=== PATIENT | male | born 1955 | race Caucasian/White ===

== ENCOUNTER 2021-04-05 18:07 | Inpatient (IN) | payer MEDICARE ==
[2021-04-05] MEDS ORDERED: Acetaminophen 325 MG Suppository ONE (18:20)
[2021-04-05] MEDS ORDERED: Cefepime 1 GM VIAL ONE (18:29)
[2021-04-05] MEDS ORDERED: Vancomycin HCl 500 MG VIAL ONE (18:30)
[2021-04-05 18:46] LABS: ALT (SGPT) 28 U/L (8-55); AST (SGOT) 42 U/L (5-34); Albumin 2.6 g/dL (3.4-4.8); Alkaline Phosphatase 52 U/L (40-110); Anion Gap 19 mmol/L (10-20); BUN (Urea Nitrogen) 67 mg/dL (8.4-25.7); Bilirubin, Total 2.2 mg/dL (0.2-1.2); Calc. Creatinine Clearance 0 mL/min (70-130); Calcium 8.1 mg/dL (7.8-10.44); Carbon Dioxide 13 mmol/L (23-31); Chloride 114 mmol/L (98-107); Globulin 2.8 g/dL (2.4-3.5); Glucose 116 mg/dL (80-115); Potassium 4.3 mmol/L (3.5-5.1); Protein, Total 5.4 g/dL (5.8-8.1); Sodium 142 mmol/L (136-145)
[2021-04-05 18:56] LABS: Acetaminophen Less than 6.0 mcg/mL (10.0-30.0); Alcohol Less than 10 mg/dL (Less than 10); CK (CPK) 649 U/L (30-200); Salicylate Less than 8.0 mg/dL (15.0-30.0)
[2021-04-05 19:05] LABS: Bilirubin Neg (Negative); Blood, Urine 150 (Negative); Clarity Clear (Clear); Glucose, Urine (Dipstick) Normal (Negative); Ketone, Urine Negative (Negative); Leukocyte Negative (Negative); Nitrite Negative (Negative); Protein, Urine (Dipstick) 500 mg/dl (Neg-Trace); Urobilinogen Normal mg/dL (Less than 2)
[2021-04-05 19:13] LABS: Amphetamine Not Detected (NotDetected); Barbiturates Screen Not Detected (NotDetected); Benzodiazepine Screen Not Detected (NotDetected); Cocaine Metabolite Screen Not Detected (NotDetected); Methadone Not Detected (NotDetected); Methamphetamine Not Detected (NotDetected); Opiate Screen Not Detected (NotDetected); Oxycodone Screen Not Detected (NotDetected); Phencyclidine (PCP) Not Detected (NotDetected); THC/Cannabinoid Screen Not Detected (NotDetected); Tricyclic Screen Not Detected (NotDetected)
[2021-04-05 19:17] LABS: CKMB 5.8 ng/mL (0-6.6)
[2021-04-05 19:18] LABS: Hemoglobin 11.8 g/dL (13.5-17.5); Mean Corpuscular HGB CONC 33.4 g/dL (32.0-36.0); Mean Corpuscular Hemoglobin 30.7 pg (27.0-33.0); Mean Corpuscular Volume 91.9 fl (81.2-95.1); Mean Platelet Volume 9.5 fl (7.4-10.4); Platelet Count 111 10x3/uL (150-450); RBC Distribution Width 17.4 % (11.5-14.5); Red Blood Cell (RBC) Count 3.84 10x6/uL (4.32-5.72); White Blood Cell (WBC) Count 3.7 10x3/uL (3.5-10.5)
[2021-04-05 19:19] LABS: Bacteria/HPF None Seen HPF (None Seen); Squamous Epithelial 0-3 HPF (0-3); WBC/HPF 0-3 HPF (0-3)
[2021-04-05] MEDS ORDERED: Aspirin 300 MG Suppository ONE (19:41)
[2021-04-05] MEDS ORDERED: ADMIXTURE FEE IVPB SCH ×2 (19:45→20:00)
[2021-04-05] MEDS ORDERED: ACYCLOVIR SODIUM IVPB SCH ×2 (19:45→20:00)
[2021-04-05] MEDS ORDERED: SODIUM CHLORIDE IVPB SCH ×2 (19:45→20:00)
[2021-04-05 19:53] LABS: INR-International Normal Ratio 1.1; PTT 24.2 sec (22.0-33.0); Prothrombin Time 12.4 sec (9.5-12.1)
[2021-04-05 19:59] LABS: MDiff Complete? YES
[2021-04-05 20:14] LABS: SARS-CoV-2 NAA Rapid Test Not Detected (NotDetected)
[2021-04-05 20:31] LABS: Band 10 % (5-11); Lymphocytes 52 % (21-51); Neutrophil 28 % (42-75)
[2021-04-05 20:32] LABS: Monocytes 5 % (0-10); Nucleated RBC 1 % (0); Reactive Lymphocytes 5 % (0-10)
[2021-04-05 20:33] LABS: Anisocytosis SLIGHT = 6-15 cells (100X) (0-5/hpf); Platelet Morphology Comment Appears Decreased
[2021-04-05 20:49] LABS: Magnesium 1.9 mg/dL (1.6-2.6)
[2021-04-05] MEDS ORDERED: Hydrocortisone Sod Succ/PF 100 mg/2 ml Vial IVP SCH (21:15)
[2021-04-05] MEDS ORDERED: Lidocaine 1% (PF) 30 ML VIAL SC SCH (21:30)
[2021-04-05] MEDS: metroNIDAZOLE 500 MG in Premix Bag 1 BAG IVPB SCH (21:34)
[2021-04-05] MEDS: Sodium Chloride 0.9% 1,000 ML IV SCH (21:36)
[2021-04-05 21:43] LABS: Lactic Acid 4.6 mmol/L (0.5-2.2)
[2021-04-05 21:50] LABS: Troponin I 0.252 ng/mL (< 0.028)
[2021-04-05] MEDS: Norepinephrine 8 MG/0.9% NS 250 ML IVPB SCH (21:57)
[2021-04-05] MEDS: Heparin 5,000 UNITS/ML VIAL SC SCH (22:37)
[2021-04-05 23:02] LABS: Actual Bicarbonate (HCO3a) 13.3 mEq/L (22-28); Base Excess (BEa) -8.1 mEq/L (-2.0 to +3.0); CO2 Tension 20.2 mmHg (35.0-45.0); Calcium, Ionized (arterial) 1.04 mmol/L (1.12-1.30); Carboxyhemoglobin (COHb) 0.6 gm% (0.0-3.0); Hemoglobin (Hb) 16.1 g/dL (14.0-18.0); Potassium - ABG Lab 4.1 mmol/L (3.70-5.30); Puncture Site RRA; pH, Arterial 7.44 (7.35-7.45)
[2021-04-05] MEDS ORDERED: Lactated Ringer's 500 ML IV SCH (23:15)
[2021-04-05] MEDS ORDERED: Digoxin 0.5 MG/2 ML AMP SLOW IVP SCH (23:15)
[2021-04-06 00:16] LABS: Lactic Acid 3.8 mmol/L (0.5-2.2)
[2021-04-06 00:19] LABS: Anion Gap 15 mmol/L (10-20); BUN (Urea Nitrogen) 67 mg/dL (8.4-25.7); Calc. Creatinine Clearance 27 mL/min (70-130); Calcium 7.5 mg/dL (7.8-10.44); Carbon Dioxide 14 mmol/L (23-31); Chloride 116 mmol/L (98-107); Glucose 156 mg/dL (80-115); Potassium 4.4 mmol/L (3.5-5.1); Sodium 141 mmol/L (136-145)
[2021-04-06] MEDS: Norepinephrine 8 MG/0.9% NS 250 ML IVPB SCH ×3 (01:57→14:39)
[2021-04-06] MEDS: Hydrocortisone Sod Succ/PF 100 mg/2 ml Vial IVP SCH ×4 (03:24→21:11)
[2021-04-06] MEDS: Sodium Chloride 0.9% 1,000 ML IV SCH (03:49)
[2021-04-06 03:57] LABS: Hemoglobin 10.8 g/dL (13.5-17.5); Mean Corpuscular HGB CONC 33.9 g/dL (32.0-36.0); Mean Corpuscular Hemoglobin 30.3 pg (27.0-33.0); Mean Corpuscular Volume 89.4 fl (81.2-95.1); Mean Platelet Volume 9.5 fl (7.4-10.4); Platelet Count 82 10x3/uL (150-450); RBC Distribution Width 17.7 % (11.5-14.5); Red Blood Cell (RBC) Count 3.57 10x6/uL (4.32-5.72); White Blood Cell (WBC) Count 1.9 10x3/uL (3.5-10.5)
[2021-04-06 04:09] LABS: MDiff Complete? YES
[2021-04-06 04:11] LABS: Platelet Morphology Comment Appears Decreased; RBC Morphology Normal
[2021-04-06 04:13] LABS: ALT (SGPT) 39 U/L (8-55); AST (SGOT) 90 U/L (5-34); Albumin 2.4 g/dL (3.4-4.8); Alkaline Phosphatase 54 U/L (40-110); Anion Gap 18 mmol/L (10-20); BUN (Urea Nitrogen) 64 mg/dL (8.4-25.7); Calc. Creatinine Clearance 29 mL/min (70-130); Calcium 7.5 mg/dL (7.8-10.44); Carbon Dioxide 11 mmol/L (23-31); Chloride 118 mmol/L (98-107); Globulin 2.6 g/dL (2.4-3.5); Glucose 190 mg/dL (80-115); Potassium 4.4 mmol/L (3.5-5.1); Sodium 143 mmol/L (136-145)
[2021-04-06 04:15] LABS: Troponin I 0.205 ng/mL (< 0.028)
[2021-04-06 04:19] LABS: Band 14 % (5-11); Lymphocytes 26 % (21-51); Metamyelocyte 2 % (0-0); Monocytes 9 % (0-10); Neutrophil 44 % (42-75); Promyelocytes 5 % (0-0)
[2021-04-06] MEDS: metroNIDAZOLE 500 MG in Premix Bag 1 BAG IVPB SCH ×3 (05:25→22:36)
[2021-04-06 07:19] LABS: Actual Bicarbonate (HCO3a) 12.5 mEq/L (22-28); CO2 Tension 19.4 mmHg (35.0-45.0); Carboxyhemoglobin (COHb) 0.3 gm% (0.0-3.0); Hemoglobin (Hb) 10.8 g/dL (14.0-18.0); O2 Tension (PaO2), arterial 179.5 mmHg (> 80.0); Potassium - ABG Lab 4.5 mmol/L (3.70-5.30); Puncture Site RRA; pH, Arterial 7.43 (7.35-7.45)
[2021-04-06] MEDS ORDERED: Sodium Bicarbonate 75 MEQ in Dextrose 5 %-0.45 % NaCl 1,000 ML IV SCH (08:15)
[2021-04-06] MEDS: Pantoprazole 40 MG VIAL IVP SCH (08:47)
[2021-04-06] MEDS: Albumin 25% 25 GM/100 ML BOT IVPB SCH ×3 (08:57→20:11)
[2021-04-06 09:08] VITALS: BMI 37.7
[2021-04-06] MEDS ORDERED: Dextrose 5% in Water 1,000 ML IV PRN (10:17)
[2021-04-06] MEDS ORDERED: Dextrose 50% Abboject 50 ML SYRINGE SLOW IVP PRN (10:17)
[2021-04-06] MEDS: Heparin 5,000 UNITS/ML VIAL SC SCH ×3 (10:50→21:05)
[2021-04-06] MEDS: Sodium Bicarbonate 75 MEQ, Admixture Fee 1 EACH in Dextrose 5% in Water 500 ML IV SCH ×3 (10:51→21:58)
[2021-04-06] MEDS: HumaLOG 300 UNITS/3 ML VIAL SC PRN ×3 (12:28→21:17)
[2021-04-06 13:08] LABS: Creatinine, Urine 87.2 mg/dL (63-166)
[2021-04-06] MEDS: Vasopressin 20 UNIT, Admixture Fee 1 EACH in Sodium Chloride 0.9% 50 ML IV SCH (15:01)
[2021-04-06] MEDS ORDERED: Vancomycin 1 GM in Premix Bag 1 BAG IVPB PRN (15:36)
[2021-04-06] MEDS ORDERED: Cefepime 2 GM in Sodium Chloride 0.9% 100 ML IVPB SCH (18:00)
[2021-04-06 18:38] LABS: Vancomycin, Random 11.4 ug/mL (See Comment)
[2021-04-06 18:53] LABS: Albumin 2.9 g/dL (3.4-4.8); Anion Gap 16 mmol/L (10-20); BUN (Urea Nitrogen) 69 mg/dL (8.4-25.7); BUN/Creatinine Ratio 20.41; CK (CPK) 1741 U/L (30-200); Calc. Creatinine Clearance 36 mL/min (70-130); Calcium 7.6 mg/dL (7.8-10.44); Carbon Dioxide 17 mmol/L (23-31); Chloride 118 mmol/L (98-107); Glucose 218 mg/dL (80-115); Phosphorus 3.7 mg/dL (2.3-4.7); Potassium 3.6 mmol/L (3.5-5.1); Sodium 147 mmol/L (136-145)
[2021-04-06] MEDS ORDERED: Vancomycin HCl 750 MG in Sodium Chloride 0.9% 250 ML 250 ML IVPB SCH (20:00)
[2021-04-06 20:10] LABS: Actual Bicarbonate (HCO3a) 17.7 mEq/L (22-28); Base Excess (BEa) -4.6 mEq/L (-2.0 to +3.0); CO2 Tension 24.4 mmHg (35.0-45.0); Calcium, Ionized (arterial) 0.95 mmol/L (1.12-1.30); Carboxyhemoglobin (COHb) 0.3 gm% (0.0-3.0); O2 Tension (PaO2), arterial 64.3 mmHg (> 80.0); Potassium - ABG Lab 3.3 mmol/L (3.70-5.30); Puncture Site RRA; pH, Arterial 7.48 (7.35-7.45)
[2021-04-06 21:07] LABS: INR-International Normal Ratio 1.2; PTT 38.3 sec (22.0-33.0)
[2021-04-06] MEDS: Dexmedetomidine In 0.9 % NaCl 400 MCG in Premix Bag 1 BAG IVPB SCH (23:21)
[2021-04-07] MEDS ORDERED: Digoxin 0.5 MG/2 ML AMP ONE (00:10)
[2021-04-07] MEDS ORDERED: Digoxin 0.5 MG/2 ML AMP SLOW IVP SCH (00:15)
[2021-04-07] MEDS ORDERED: Amiodarone 150 MG/3 ML VIAL ONE (00:41)
[2021-04-07] MEDS ORDERED: Lorazepam 2 MG/ML VIAL SLOW IVP PRN (00:44)
[2021-04-07] MEDS ORDERED: Amiodarone In Dextrose 100 ML IVPB SCH (00:45)
[2021-04-07] MEDS ORDERED: Amiodarone In Dextrose 200 ML IVPB SCH (00:45)
[2021-04-07] MEDS ORDERED: Lorazepam 2 MG/ML VIAL ONE (00:50)
[2021-04-07] MEDS: Vasopressin 20 UNIT, Admixture Fee 1 EACH in Sodium Chloride 0.9% 50 ML IV SCH (02:34)
[2021-04-07] MEDS: Sodium Bicarbonate 75 MEQ, Admixture Fee 1 EACH in Dextrose 5% in Water 500 ML IV SCH ×2 (02:35→06:45)
[2021-04-07] MEDS: Albumin 25% 25 GM/100 ML BOT IVPB SCH (03:24)
[2021-04-07 03:53] LABS: Hemoglobin 8.5 g/dL (13.5-17.5); Mean Corpuscular HGB CONC 33.6 g/dL (32.0-36.0); Mean Corpuscular Hemoglobin 30.4 pg (27.0-33.0); Mean Corpuscular Volume 90.4 fl (81.2-95.1); Mean Platelet Volume 9.5 fl (7.4-10.4); Platelet Count 34 10x3/uL (150-450); RBC Distribution Width 17.3 % (11.5-14.5); White Blood Cell (WBC) Count 0.8 10x3/uL (3.5-10.5)
[2021-04-07 04:03] LABS: Anion Gap 16 mmol/L (10-20); BUN (Urea Nitrogen) 67 mg/dL (8.4-25.7); Calc. Creatinine Clearance 37 mL/min (70-130); Calcium 7.3 mg/dL (7.8-10.44); Carbon Dioxide 19 mmol/L (23-31); Chloride 118 mmol/L (98-107); Glucose 213 mg/dL (80-115); Potassium 3.6 mmol/L (3.5-5.1); Sodium 149 mmol/L (136-145)
[2021-04-07 04:10] LABS: MDiff Complete? YES
[2021-04-07 04:13] LABS: Platelet Morphology Comment Appears Decreased
[2021-04-07 04:14] LABS: Anisocytosis SLIGHT = 6-15 cells (100X) (0-5/hpf); Hypochromia SLIGHT = 6-15 cells (100X) (0-5/hpf)
[2021-04-07] MEDS: Hydrocortisone Sod Succ/PF 100 mg/2 ml Vial IVP SCH ×2 (04:25→08:41)
[2021-04-07 04:28] LABS: Lymphocytes 32 % (21-51); Metamyelocyte 12 % (0-0); Monocytes 6 % (0-10); Myelocyte 4 % (0-0); Neutrophil 24 % (42-75); Promyelocytes 18 % (0-0)
[2021-04-07] MEDS: HumaLOG 300 UNITS/3 ML VIAL SC PRN ×2 (04:32→08:43)
[2021-04-07] MEDS: metroNIDAZOLE 500 MG in Premix Bag 1 BAG IVPB SCH (06:11)
[2021-04-07] MEDS ORDERED: Dextrose 5% in Water 1,000 ML IV SCH (07:30)
[2021-04-07] MEDS: Dexmedetomidine In 0.9 % NaCl 400 MCG in Premix Bag 1 BAG IVPB SCH (07:54)
[2021-04-07] MEDS ORDERED: Sodium Bicarbonate 75 MEQ in Sterile Water Injection 1,000 ML IV SCH (08:00)
[2021-04-07] MEDS ORDERED: Meropenem 1 GM in Sodium Chloride 0.9% 100 ML IVPB SCH (08:30)
[2021-04-07] MEDS: Pantoprazole 40 MG VIAL IVP SCH (08:41)
[2021-04-07] MEDS: Norepinephrine 8 MG/0.9% NS 250 ML IVPB SCH (09:24)
[2021-04-07 09:27] LABS: ALT (SGPT) 40 U/L (8-55); AST (SGOT) 66 U/L (5-34); Albumin 2.8 g/dL (3.4-4.8); Alkaline Phosphatase 38 U/L (40-110); Bilirubin, Direct 0.5 mg/dL (0.1-0.3); Bilirubin, Total 1.1 mg/dL (0.2-1.2); CK (CPK) 1228 U/L (30-200); Protein, Total 5.4 g/dL (5.8-8.1)
[2021-04-07] MEDS ORDERED: Meropenem 500 MG in Sodium Chloride 0.9% 100 ML IVPB SCH (20:30)
[2021-04-09 12:13] LABS: CMV IgG AB Less than 0.60 U/mL (0.00-0.59)
== END 2021-04-07 10:05 | disposition short-term general hospital (02) | DRG 871 ==
LOC: CSHERS 18:07 → CSHIMCU 21:06
PROVIDERS: ADMIT Family Medicine; ATTEND Internal Medicine
PROC: 3E033XZ Introduction of Vasopressor into Peripheral Vein, Percutaneous Approach (ICD-10-PCS; principal; 2021-04-05)
PROC: 02H633Z Insertion of Infusion Device into Right Atrium, Percutaneous Approach (ICD-10-PCS; 2021-04-05)
DX: A41.9 Sepsis, unspecified organism (principal); R65.21 Severe sepsis with septic shock; G93.41 Metabolic encephalopathy; J18.9 Pneumonia, unspecified organism; J96.00 Acute respiratory failure, unspecified whether with hypoxia or hypercapnia; Z94.81 Bone marrow transplant status; C91.10 Chronic lymphocytic leukemia of B-cell type not having achieved remission; N17.9 Acute kidney failure, unspecified; N18.5 Chronic kidney disease, stage 5; I12.0 Hypertensive chronic kidney disease with stage 5 chronic kidney disease or end stage renal disease; D89.813 Graft-versus-host disease, unspecified; E87.2 Acidosis; M62.82 Rhabdomyolysis; D61.818 Other pancytopenia; E87.0 Hyperosmolality and hypernatremia; Z20.822 Contact with and (suspected) exposure to COVID-19; E86.9 Volume depletion, unspecified; E88.09 Other disorders of plasma-protein metabolism, not elsewhere classified; E03.9 Hypothyroidism, unspecified; T45.1X5A Adverse effect of antineoplastic and immunosuppressive drugs, initial encounter; D69.6 Thrombocytopenia, unspecified; E83.51 Hypocalcemia; Z88.8 Allergy status to other drugs, medicaments and biological substances; Z79.899 Other long term (current) drug therapy; Z92.21 Personal history of antineoplastic chemotherapy
CPT/HCPCS: 36415; 36416; 36556; 36600; 51702; 70450; 71045; 71250; 80048; 80053; 80076; 80202; 80306; 80307; 81003; 81015; 82274; 82550; 82553; 82570; 82805; 83605; 83630; 83690; 83735; 84156; 84300; 84443; 84484; 84540; 85025; 85384; 85610; 85730; 86644; 86645; 87040; 87045; 87046; 87077; 87081; 87086; 87149; 87186; 87427; 87449; 93005; 93010; 93306; 94660; 96365; 96366; 96368; 96375; 99292; A4217; C9113; J0133; J0282; J0692; J1160; J1644; J1720; J1815; J1956; J2060; J2185; J3370; J3490; J7050; J7070; J7120; P9047; U0002

== ENCOUNTER 2021-05-13 14:20 | Inpatient (IN) | payer MEDICARE, OTHER ==
[2021-05-13 15:03] LABS: Hemoglobin 6.7 g/dL (13.5-17.5); Mean Corpuscular HGB CONC 30.6 g/dL (32.0-36.0); Mean Corpuscular Hemoglobin 27.9 pg (27.0-33.0); Mean Corpuscular Volume 91.3 fl (81.2-95.1); Mean Platelet Volume 10.9 fl (7.4-10.4); Platelet Count 363 10x3/uL (150-450); White Blood Cell (WBC) Count 4.1 10x3/uL (3.5-10.5)
[2021-05-13 15:11] LABS: ALT (SGPT) Less than 6 U/L (8-55); AST (SGOT) 17 U/L (5-34); Albumin 2.8 g/dL (3.4-4.8); Alkaline Phosphatase 104 U/L (40-110); Anion Gap 15 mmol/L (10-20); BUN (Urea Nitrogen) 13 mg/dL (8.4-25.7); Bilirubin, Total 1.4 mg/dL (0.2-1.2); Calc. Creatinine Clearance 0 mL/min (70-130); Calcium 8.9 mg/dL (7.8-10.44); Carbon Dioxide 23 mmol/L (23-31); Chloride 106 mmol/L (98-107); Globulin 3.4 g/dL (2.4-3.5); Glucose 107 mg/dL (80-115); Potassium 4.2 mmol/L (3.5-5.1); Protein, Total 6.2 g/dL (5.8-8.1); Sodium 140 mmol/L (136-145)
[2021-05-13 16:57] LABS: SARS-CoV-2 NAA Rapid Test DETECTED (NotDetected)
[2021-05-13 17:38] LABS: Band 1 % (5-11); Eosinophils 4 % (0-10); Lymphocytes 41 % (21-51); Metamyelocyte 1 % (0-0); Monocytes 17 % (0-10); Neutrophil 36 % (42-75); Nucleated RBC 2 % (0)
[2021-05-13 17:39] LABS: Anisocytosis SLIGHT = 6-15 cells (100X) (0-5/hpf); Hypochromia SLIGHT = 6-15 cells (100X) (0-5/hpf); MDiff Complete? YES; Platelet Morphology Comment Appears Adequate; Polychromasia SLIGHT = 2-3 cells (100X) (0-2/hpf); Stomatocytes SLIGHT = 2-5 cells (100X) (0-1/hpf)
[2021-05-13 17:46] LABS: Lactic Acid 0.9 mmol/L (0.5-2.2)
[2021-05-13] MEDS ORDERED: Communication Order-Pharmacy FS PRN (20:09)
[2021-05-13] MEDS ORDERED: Sodium Chloride 0.9% 1,000 ML IV SCH (20:15)
[2021-05-13 21:02] LABS: CRP (Inflammatory) 15.59 mg/dL (= or < 0.5); Magnesium 1.9 mg/dL (1.6-2.6)
[2021-05-13] MEDS ORDERED: Dexamethasone 10 MG/ML VIAL ONE (22:41)
[2021-05-13] MEDS ORDERED: Cefepime 2 GM VIAL ONE (22:41)
[2021-05-14 01:18] VITALS: BMI 27.1
[2021-05-14] MEDS ORDERED: Sodium Chloride 0.9% 1,000 ML IV SCH (01:30)
[2021-05-14] MEDS: Sodium Chloride 0.9% 1,000 ML IV SCH ×3 (01:56→19:28)
[2021-05-14] MEDS ORDERED: Vancomycin 1.5 GRAM/300 ML BAG 1.5 GM in Premix Bag 1 BAG IVPB SCH (02:00)
[2021-05-14] MEDS: Dexamethasone 4 mg/ml Vial SLOW IVP SCH ×2 (03:11→21:49)
[2021-05-14 05:31] LABS: Anion Gap 14 mmol/L (10-20); BUN (Urea Nitrogen) 13 mg/dL (8.4-25.7); CRP (Inflammatory) 14.35 mg/dL (= or < 0.5); Calc. Creatinine Clearance 53 mL/min (70-130); Calcium 8.4 mg/dL (7.8-10.44); Carbon Dioxide 21 mmol/L (23-31); Chloride 109 mmol/L (98-107); Glucose 154 mg/dL (80-115); Potassium 4.3 mmol/L (3.5-5.1); Sodium 140 mmol/L (136-145)
[2021-05-14 05:40] LABS: Hemoglobin 7.5 g/dL (13.5-17.5); Mean Corpuscular HGB CONC 30.6 g/dL (32.0-36.0); Mean Corpuscular Hemoglobin 28.2 pg (27.0-33.0); Mean Corpuscular Volume 92.1 fl (81.2-95.1); Mean Platelet Volume 11.3 fl (7.4-10.4); Platelet Count 325 10x3/uL (150-450); RBC Distribution Width 17.9 % (11.5-14.5); Red Blood Cell (RBC) Count 2.66 10x6/uL (4.32-5.72); White Blood Cell (WBC) Count 2.6 10x3/uL (3.5-10.5)
[2021-05-14 06:34] LABS: MDiff Complete? YES
[2021-05-14 08:47] LABS: Lymphocytes 17 % (21-51); Monocytes 7 % (0-10); Nucleated RBC 1 % (0)
[2021-05-14 08:48] LABS: Band 15 % (5-11); Eosinophils 1 % (0-10); Neutrophil 59 % (42-75)
[2021-05-14 08:49] LABS: Platelet Morphology Comment Appears Adequate
[2021-05-14 08:52] LABS: Anisocytosis SLIGHT = 6-15 cells (100X) (0-5/hpf)
[2021-05-14] MEDS: Cefepime 2 GM in Sodium Chloride 0.9% 100 ML IVPB SCH ×2 (12:25→23:42)
[2021-05-14] MEDS ORDERED: Nystatin Powder 15 GM BOT TOP PRN (17:09)
[2021-05-15] MEDS: Vancomycin HCl 1 GM in Sodium Chloride 0.9% 250 ML 250 ML IVPB SCH (01:45)
[2021-05-15] MEDS: Sodium Chloride 0.9% 1,000 ML IV SCH ×3 (01:50→17:06)
[2021-05-15 10:04] LABS: Anion Gap 11 mmol/L (10-20); BUN (Urea Nitrogen) 17 mg/dL (8.4-25.7); Calc. Creatinine Clearance 69 mL/min (70-130); Calcium 8.1 mg/dL (7.8-10.44); Carbon Dioxide 21 mmol/L (23-31); Chloride 110 mmol/L (98-107); Glucose 196 mg/dL (80-115); Potassium 4.1 mmol/L (3.5-5.1); Sodium 138 mmol/L (136-145)
[2021-05-15 10:05] LABS: Hemoglobin 7.7 g/dL (13.5-17.5); MDiff Complete? YES; Mean Corpuscular HGB CONC 31.6 g/dL (32.0-36.0); Mean Corpuscular Hemoglobin 28.8 pg (27.0-33.0); Mean Corpuscular Volume 91.4 fl (81.2-95.1); Mean Platelet Volume 10.5 fl (7.4-10.4); Platelet Count 318 10x3/uL (150-450); RBC Distribution Width 17.7 % (11.5-14.5); Red Blood Cell (RBC) Count 2.67 10x6/uL (4.32-5.72); White Blood Cell (WBC) Count 2.3 10x3/uL (3.5-10.5)
[2021-05-15 10:26] LABS: Band 3 % (5-11); Lymphocytes 20 % (21-51); Monocytes 8 % (0-10); Neutrophil 69 % (42-75); Nucleated RBC 2 % (0)
[2021-05-15 10:27] LABS: Platelet Morphology Comment Appears Adequate
[2021-05-15 10:29] LABS: Anisocytosis SLIGHT = 6-15 cells (100X) (0-5/hpf)
[2021-05-15] MEDS: Cefepime 2 GM in Sodium Chloride 0.9% 100 ML IVPB SCH ×2 (10:53→23:36)
[2021-05-15] MEDS ORDERED: ELTROMBOPAG OLAMINE 75 MG PO SCH (15:15)
[2021-05-15] MEDS: Dexamethasone 4 mg/ml Vial SLOW IVP SCH (20:43)
[2021-05-16] MEDS: Sodium Chloride 0.9% 1,000 ML IV SCH ×2 (01:04→10:55)
[2021-05-16] MEDS: Vancomycin HCl 1 GM in Sodium Chloride 0.9% 250 ML 250 ML IVPB SCH (01:04)
[2021-05-16 01:24] LABS: Vancomycin, Trough 12.1 ug/mL
[2021-05-16 05:23] LABS: Hemoglobin 8.1 g/dL (13.5-17.5); Mean Corpuscular HGB CONC 31.9 g/dL (32.0-36.0); Mean Corpuscular Hemoglobin 28.6 pg (27.0-33.0); Mean Corpuscular Volume 89.8 fl (81.2-95.1); Platelet Count 328 10x3/uL (150-450); RBC Distribution Width 17.9 % (11.5-14.5); Red Blood Cell (RBC) Count 2.83 10x6/uL (4.32-5.72); White Blood Cell (WBC) Count 2.4 10x3/uL (3.5-10.5)
[2021-05-16 05:43] LABS: Anion Gap 14 mmol/L (10-20); BUN (Urea Nitrogen) 17 mg/dL (8.4-25.7); Calc. Creatinine Clearance 73 mL/min (70-130); Calcium 7.9 mg/dL (7.8-10.44); Carbon Dioxide 18 mmol/L (23-31); Chloride 110 mmol/L (98-107); Glucose 143 mg/dL (80-115); Potassium 4.1 mmol/L (3.5-5.1); Sodium 138 mmol/L (136-145)
[2021-05-16] MEDS ORDERED: Levothyroxine Sodium 125 MCG TAB PO SCH (06:00)
[2021-05-16 07:05] LABS: MDiff Complete? YES
[2021-05-16 07:13] LABS: Band 4 % (5-11); Lymphocytes 21 % (21-51); Monocytes 17 % (0-10); Neutrophil 58 % (42-75)
[2021-05-16 07:15] LABS: Anisocytosis SLIGHT = 6-15 cells (100X) (0-5/hpf); Polychromasia SLIGHT = 2-3 cells (100X) (0-2/hpf)
[2021-05-16 07:16] LABS: Platelet Morphology Comment Appears Adequate; Tear Drops SLIGHT = 2-5 cells (100X) (0-1/hpf)
[2021-05-16 08:04] VITALS: TEMP 98
[2021-05-16] MEDS ORDERED: Citalopram 20 MG TAB PO SCH (09:00)
[2021-05-16] MEDS ORDERED: Propranolol 40 MG TAB PO SCH (09:00)
[2021-05-16] MEDS ORDERED: Sodium Bicarbonate Tab 325 MG TAB PO SCH (09:00)
[2021-05-16] MEDS: Cefepime 2 GM in Sodium Chloride 0.9% 100 ML IVPB SCH (10:55)
[2021-05-16 13:31] VITALS: BP 104/82
== END 2021-05-16 18:17 | disposition home or self-care (01) | DRG 871 ==
LOC: CSHERS 14:20 → CSHTELE 20:31 → UNDOADMIN 05-14 00:52 → CSHTELE 05-14 00:52
PROVIDERS: ADMIT Family Medicine; ATTEND Hospitalist
PROC: 8E0ZXY6 Isolation (ICD-10-PCS; principal; 2021-05-13)
PROC: 30233N1 Transfusion of Nonautologous Red Blood Cells into Peripheral Vein, Percutaneous Approach (ICD-10-PCS; 2021-05-13)
PROC: 3E0333Z Introduction of Anti-inflammatory into Peripheral Vein, Percutaneous Approach (ICD-10-PCS; 2021-05-13)
DX: A41.9 Sepsis, unspecified organism (principal); U07.1 COVID-19; J12.82 Pneumonia due to coronavirus disease 2019; J15.9 Unspecified bacterial pneumonia; J96.01 Acute respiratory failure with hypoxia; N17.9 Acute kidney failure, unspecified; E87.2 Acidosis; C91.10 Chronic lymphocytic leukemia of B-cell type not having achieved remission; Z94.81 Bone marrow transplant status; D89.813 Graft-versus-host disease, unspecified; D64.9 Anemia, unspecified; E03.9 Hypothyroidism, unspecified; I12.9 Hypertensive chronic kidney disease with stage 1 through stage 4 chronic kidney disease, or unspecified chronic kidney disease; N18.9 Chronic kidney disease, unspecified; R65.20 Severe sepsis without septic shock; Z79.890 Hormone replacement therapy; Z79.899 Other long term (current) drug therapy; Z88.8 Allergy status to other drugs, medicaments and biological substances; Z87.01 Personal history of pneumonia (recurrent); Z80.0 Family history of malignant neoplasm of digestive organs; Z83.3 Family history of diabetes mellitus; Z82.49 Family history of ischemic heart disease and other diseases of the circulatory system
CPT/HCPCS: 0240U; 36415; 36430; 71045; 80048; 80053; 80202; 83605; 83735; 85025; 86140; 86850; 86900; 86901; 87040; 96374; J0692; J1100; J1956; J3370; J3490; J7050; P9016

== ENCOUNTER 2021-07-09 16:34 | Emergency (ER) | payer MEDICARE ==
[2021-07-09] MEDS ORDERED: Acetaminophen 500 MG TAB ONE (17:50)
[2021-07-09] MEDS ORDERED: Cefepime 2 GM VIAL ONE (17:50)
[2021-07-09 18:08] LABS: Hemoglobin 13.6 g/dL (13.5-17.5); Mean Corpuscular Hemoglobin 29.5 pg (27.0-33.0); Mean Corpuscular Volume 92.2 fl (81.2-95.1); Mean Platelet Volume 8.6 fl (7.4-10.4); Platelet Count 264 10x3/uL (150-450); RBC Distribution Width 18.9 % (11.5-14.5); Red Blood Cell (RBC) Count 4.61 10x6/uL (4.32-5.72); White Blood Cell (WBC) Count 2.9 10x3/uL (3.5-10.5)
[2021-07-09 18:11] LABS: ALT (SGPT) 18 U/L (8-55); AST (SGOT) 14 U/L (5-34); Albumin 4.2 g/dL (3.4-4.8); Alkaline Phosphatase 111 U/L (40-110); Anion Gap 16 mmol/L (10-20); BUN (Urea Nitrogen) 16 mg/dL (8.4-25.7); Bilirubin, Total 1.9 mg/dL (0.2-1.2); Calc. Creatinine Clearance 0 mL/min (70-130); Calcium 10.6 mg/dL (7.8-10.44); Carbon Dioxide 26 mmol/L (23-31); Chloride 94 mmol/L (98-107); Globulin 3.8 g/dL (2.4-3.5); Glucose 102 mg/dL (80-115); Potassium 4.2 mmol/L (3.5-5.1); Sodium 132 mmol/L (136-145)
[2021-07-09 18:23] LABS: Band 10 % (5-11); Eosinophils 12 % (0-10); Lymphocytes 30 % (21-51); Nucleated RBC 1 % (0)
[2021-07-09 18:24] LABS: Monocytes 17 % (0-10); Neutrophil 28 % (42-75)
[2021-07-09 18:25] LABS: Anisocytosis SLIGHT = 6-15 cells (100X) (0-5/hpf); Microcytosis SLIGHT = 6-15 cells (100X) (0-5/hpf); Myelocyte 2 % (0-0)
[2021-07-09 18:26] LABS: Dohle Bodies SLIGHT; Large Platelets MODERATE; Platelet Clumps SLIGHT; Platelet Morphology Comment Appears Adequate; Toxic Granulation SLIGHT
[2021-07-09 18:27] LABS: MDiff Complete? YES
== END 2021-07-09 21:43 | disposition home or self-care (01) ==
LOC: CSHERS 16:34
DX: L03.116 Cellulitis of left lower limb (principal); E03.9 Hypothyroidism, unspecified; I12.9 Hypertensive chronic kidney disease with stage 1 through stage 4 chronic kidney disease, or unspecified chronic kidney disease; N18.9 Chronic kidney disease, unspecified; M79.605 Pain in left leg
CPT/HCPCS: 36415; 80053; 83605; 85025; 87040; 96365; 96366; 96367; J0692; J3370

== ENCOUNTER 2021-10-29 11:56 | Inpatient (IN) | payer MEDICARE ==
[2021-10-29] MEDS ORDERED: Norepinephrine 8 MG/0.9% NS 250 ML ONE (12:15)
[2021-10-29 13:58] LABS: Hemoglobin 11.9 g/dL (13.5-17.5); Mean Corpuscular HGB CONC 33.9 g/dL (32.0-36.0); Mean Corpuscular Hemoglobin 30.3 pg (27.0-33.0); Mean Corpuscular Volume 89.3 fl (81.2-95.1); Mean Platelet Volume 9.6 fl (7.4-10.4); Platelet Count 109 10x3/uL (150-450); RBC Distribution Width 16.1 % (11.5-14.5); Red Blood Cell (RBC) Count 3.93 10x6/uL (4.32-5.72); White Blood Cell (WBC) Count 4.1 10x3/uL (3.5-10.5)
[2021-10-29 14:01] LABS: Anion Gap 18 mmol/L (10-20); BUN (Urea Nitrogen) 28 mg/dL (8.4-25.7); Calc. Creatinine Clearance 0 mL/min (70-130); Carbon Dioxide 20 mmol/L (23-31); Chloride 102 mmol/L (98-107); Potassium 3.6 mmol/L (3.5-5.1); Sodium 136 mmol/L (136-145)
[2021-10-29 14:02] LABS: ALT (SGPT) 13 U/L (8-55); AST (SGOT) 13 U/L (5-34); Albumin 3.2 g/dL (3.4-4.8); Alkaline Phosphatase 67 U/L (40-110); Calcium 9.3 mg/dL (7.8-10.44); Estimated GFR 21; Globulin 2.7 g/dL (2.4-3.5); Glucose 114 mg/dL (80-115); Protein, Total 5.9 g/dL (5.8-8.1)
[2021-10-29 14:17] LABS: SARS-CoV-2 NAA Rapid Test Not Detected (NotDetected)
[2021-10-29] MEDS ORDERED: Vancomycin HCl 500 MG VIAL ONE (14:22)
[2021-10-29] MEDS ORDERED: Cefepime 2 GM VIAL ONE (14:22)
[2021-10-29 14:35] LABS: Band 11 % (5-11); Eosinophils 4 % (0-10); Lymphocytes 33 % (21-51); Metamyelocyte 2 % (0-0); Monocytes 17 % (0-10)
[2021-10-29 14:37] LABS: Neutrophil 29 % (42-75)
[2021-10-29 14:38] LABS: Tear Drops SLIGHT = 2-5 cells (100X) (0-1/hpf)
[2021-10-29 14:39] LABS: Anisocytosis SLIGHT = 6-15 cells (100X) (0-5/hpf); Platelet Morphology Comment Appears Decreased
[2021-10-29 14:41] LABS: MDiff Complete? YES
[2021-10-29] MEDS ORDERED: Communication Order-Pharmacy FS PRN (14:55)
[2021-10-29] MEDS ORDERED: Norepinephrine 8 MG/0.9% NS 250 ML IVPB SCH (15:00)
[2021-10-29] MEDS ORDERED: Magnesium 2 GM/50 ML BAG (IN WATER) ONE (15:27)
[2021-10-29] MEDS ORDERED: Dextrose 50% Abboject 50 ML SYRINGE SLOW IVP PRN (16:00)
[2021-10-29] MEDS ORDERED: Dextrose 5% in Water 1,000 ML IV PRN (16:00)
[2021-10-29 16:12] LABS: Magnesium 1.6 mg/dL (1.6-2.6)
[2021-10-29 16:49] LABS: Free T4 (Free Thyroxine) 1.25 ng/dL (0.70-1.48); Thyroid Stimulating Hormone 1.4233 uIU/mL (0.35-4.94)
[2021-10-29] MEDS ORDERED: Piperacillin/Tazobactam 3.375 GM in Sodium Chloride 0.9% 100 ML IVPB SCH ×2 (17:00→18:00)
[2021-10-29] MEDS ORDERED: Digoxin 0.5 MG/2 ML AMP SLOW IVP SCH (17:00)
[2021-10-29] MEDS: Lactated Ringer's 1,000 ML IV SCH ×2 (17:27→23:57)
[2021-10-29] MEDS: Hydrocortisone Sod Succ/PF 100 mg/2 ml Vial IVP SCH (17:27)
[2021-10-29 17:32] LABS: Strep pneumo Urine Ag NEGATIVE (NEGATIVE)
[2021-10-29] MEDS ORDERED: Enoxaparin Sodium 100 MG/ML SYRINGE SC SCH (18:00)
[2021-10-29] MEDS: Vancomycin 25 MG/ML Oral SOLN PO SCH (18:29)
[2021-10-29] MEDS: Piperacillin/Tazobactam 3.375 GM in Sodium Chloride 0.9% 100 ML IVPB SCH (19:37)
[2021-10-29] MEDS: valACYclovir 500 MG TAB PO SCH (19:38)
[2021-10-29] MEDS ORDERED: Apixaban 5 MG TAB PO SCH (20:00)
[2021-10-29 20:44] LABS: Glucose 114 mg/dL (80-115)
[2021-10-29 21:42] LABS: Glucose 158 mg/dL (80-115)
[2021-10-30] MEDS: Vancomycin 25 MG/ML Oral SOLN PO SCH ×4 (01:43→17:25)
[2021-10-30] MEDS: Hydrocortisone Sod Succ/PF 100 mg/2 ml Vial IVP SCH ×4 (01:43→17:25)
[2021-10-30] MEDS ORDERED: Hydrocortisone Sod Succ/PF 100 mg/2 ml Vial ONE (01:46)
[2021-10-30 01:50] LABS: Glucose 175 mg/dL (80-115)
[2021-10-30 04:10] LABS: Mean Corpuscular HGB CONC 34.1 g/dL (32.0-36.0); Mean Corpuscular Hemoglobin 30.6 pg (27.0-33.0); Mean Corpuscular Volume 89.6 fl (81.2-95.1); Mean Platelet Volume 9.3 fl (7.4-10.4); Platelet Count 75 10x3/uL (150-450); Red Blood Cell (RBC) Count 3.27 10x6/uL (4.32-5.72)
[2021-10-30 04:14] LABS: MDiff Complete? YES; Manual Diff?? YES
[2021-10-30 04:36] LABS: ALT (SGPT) 10 U/L (8-55); AST (SGOT) 9 U/L (5-34); Albumin 2.7 g/dL (3.4-4.8); Alkaline Phosphatase 64 U/L (40-110); Anion Gap 16 mmol/L (10-20); BUN (Urea Nitrogen) 28 mg/dL (8.4-25.7); Bilirubin, Total 2.2 mg/dL (0.2-1.2); Calc. Creatinine Clearance 45 mL/min (70-130); Calcium 8.9 mg/dL (7.8-10.44); Carbon Dioxide 21 mmol/L (23-31); Chloride 106 mmol/L (98-107); Estimated GFR 30; Globulin 2.9 g/dL (2.4-3.5); Glucose 174 mg/dL (80-115); Potassium 3.8 mmol/L (3.5-5.1); Protein, Total 5.6 g/dL (5.8-8.1); Sodium 139 mmol/L (136-145)
[2021-10-30] MEDS: Lactated Ringer's 1,000 ML IV SCH ×3 (04:58→18:51)
[2021-10-30] MEDS: Piperacillin/Tazobactam 3.375 GM in Sodium Chloride 0.9% 100 ML IVPB SCH ×3 (05:00→20:15)
[2021-10-30 05:18] LABS: Band 25 % (5-11); Eosinophils 1 % (0-10); Lymphocytes 10 % (21-51); Metamyelocyte 3 % (0-0); Monocytes 9 % (0-10); Neutrophil 46 % (42-75); Reactive Lymphocytes 5 % (0-10)
[2021-10-30 05:19] LABS: Dohle Bodies SLIGHT; Hypersemented Neutrophil SLIGHT; Platelet Morphology Comment Appears Decreased; Toxic Granulation SLIGHT; Vacuoles SLIGHT
[2021-10-30 05:24] LABS: Anisocytosis SLIGHT = 6-15 cells (100X) (0-5/hpf)
[2021-10-30 05:25] LABS: Hypochromia SLIGHT = 6-15 cells (100X) (0-5/hpf); Macrocytosis SLIGHT = 6-15 cells (100X) (0-5/hpf); Microcytosis SLIGHT = 6-15 cells (100X) (0-5/hpf); Polychromasia SLIGHT = 2-3 cells (100X) (0-2/hpf)
[2021-10-30] MEDS: Apixaban 5 MG TAB PO SCH ×2 (07:49→20:15)
[2021-10-30] MEDS: Cholecalciferol 1,000 UNITS (25 MCG) TAB PO SCH (07:49)
[2021-10-30] MEDS: valACYclovir 500 MG TAB PO SCH ×2 (07:49→20:15)
[2021-10-30] MEDS ORDERED: Digoxin 0.25 MG TAB PO SCH (09:00)
[2021-10-30] MEDS ORDERED: Enoxaparin Sodium 100 MG/ML SYRINGE SC SCH (09:00)
[2021-10-30] MEDS ORDERED: LEVOTHYROXINE SODIUM 125 MCG PO SCH (09:00)
[2021-10-30] MEDS ORDERED: Amiodarone 200 MG TAB PO SCH (09:30)
[2021-10-30 09:42] LABS: Glucose 191 mg/dL (80-115)
[2021-10-30 09:52] LABS: Magnesium 2.3 mg/dL (1.6-2.6)
[2021-10-30 13:11] LABS: Glucose 201 mg/dL (80-115)
[2021-10-30] MEDS: HumaLOG 300 UNITS/3 ML VIAL SC PRN (13:32)
[2021-10-30 13:59] LABS: Vancomycin, Random 8.8 ug/mL (See Comment)
[2021-10-30] MEDS ORDERED: Vancomycin 1 GM in Premix Bag 1 BAG IVPB PRN (14:00)
[2021-10-30] MEDS ORDERED: Vancomycin 1.5 GRAM/300 ML BAG 1.5 GM in Premix Bag 1 BAG IVPB SCH (15:00)
[2021-10-30] MEDS: Amiodarone 200 MG TAB PO SCH (20:15)
[2021-10-31] MEDS: Hydrocortisone Sod Succ/PF 100 mg/2 ml Vial IVP SCH ×5 (00:06→23:32)
[2021-10-31] MEDS: Vancomycin 25 MG/ML Oral SOLN PO SCH ×5 (00:06→23:33)
[2021-10-31] MEDS: HumaLOG 300 UNITS/3 ML VIAL SC PRN (00:40)
[2021-10-31] MEDS: Lactated Ringer's 1,000 ML IV SCH ×4 (03:22→23:32)
[2021-10-31 03:41] LABS: Hemoglobin 9.9 g/dL (13.5-17.5); Mean Corpuscular HGB CONC 35.2 g/dL (32.0-36.0); Mean Corpuscular Hemoglobin 30.7 pg (27.0-33.0); Mean Platelet Volume 10.3 fl (7.4-10.4); Platelet Count 56 10x3/uL (150-450); RBC Distribution Width 14.9 % (11.5-14.5); Red Blood Cell (RBC) Count 3.23 10x6/uL (4.32-5.72); White Blood Cell (WBC) Count 0.9 10x3/uL (3.5-10.5)
[2021-10-31 04:05] LABS: Calcium 8.6 mg/dL (7.8-10.44); Chloride 109 mmol/L (98-107); Potassium 3.3 mmol/L (3.5-5.1); Sodium 142 mmol/L (136-145)
[2021-10-31 04:09] LABS: Vancomycin, Trough 20.7 ug/mL
[2021-10-31] MEDS: Piperacillin/Tazobactam 3.375 GM in Sodium Chloride 0.9% 100 ML IVPB SCH ×3 (04:10→20:10)
[2021-10-31 04:23] LABS: ALT (SGPT) 9 U/L (8-55); AST (SGOT) 9 U/L (5-34); Albumin 2.8 g/dL (3.4-4.8); Alkaline Phosphatase 53 U/L (40-110); Anion Gap 18 mmol/L (10-20); BUN (Urea Nitrogen) 25 mg/dL (8.4-25.7); Bilirubin, Total 0.9 mg/dL (0.2-1.2); Calc. Creatinine Clearance 59 mL/min (70-130); Carbon Dioxide 18 mmol/L (23-31); Estimated GFR 42; Globulin 2.9 g/dL (2.4-3.5); Glucose 154 mg/dL (80-115); Protein, Total 5.7 g/dL (5.8-8.1)
[2021-10-31 05:52] VITALS: BMI 31.3
[2021-10-31 06:12] LABS: MDiff Complete? YES; Manual Diff?? YES
[2021-10-31 06:35] LABS: Band 6 % (5-11); Eosinophils 2 % (0-10); Lymphocytes 27 % (21-51); Monocytes 8 % (0-10); Neutrophil 56 % (42-75); Reactive Lymphocytes 1 % (0-10)
[2021-10-31 06:36] LABS: Platelet Morphology Comment Appears Decreased
[2021-10-31 06:37] LABS: Anisocytosis SLIGHT = 6-15 cells (100X) (0-5/hpf); Elliptocytes SLIGHT = 2-5 cells (100X) (0-1/hpf); Hypochromia SLIGHT = 6-15 cells (100X) (0-5/hpf); Macrocytosis SLIGHT = 6-15 cells (100X) (0-5/hpf); Microcytosis SLIGHT = 6-15 cells (100X) (0-5/hpf)
[2021-10-31] MEDS: Amiodarone 200 MG TAB PO SCH ×2 (07:49→20:09)
[2021-10-31] MEDS: Cholecalciferol 1,000 UNITS (25 MCG) TAB PO SCH (07:49)
[2021-10-31] MEDS: Apixaban 5 MG TAB PO SCH ×2 (07:49→20:10)
[2021-10-31] MEDS: valACYclovir 500 MG TAB PO SCH ×2 (08:02→20:16)
[2021-10-31] MEDS ORDERED: Carvedilol 3.125 MG TAB PO SCH (08:45)
[2021-10-31] MEDS ORDERED: Potassium Chloride 20 MEQ TAB PO SCH (09:00)
[2021-10-31] MEDS ORDERED: Amiodarone 200 MG TAB PO SCH (11:00)
[2021-10-31 11:11] LABS: Campy jejuni + coli by PCR Negative (Negative); STEC Shiga Toxin 1+2 Negative (Negative); Salmonella spp. by PCR Negative (Negative); Shigella spp + EIEC by PCR Negative (Negative)
[2021-10-31] MEDS ORDERED: Piperacillin/Tazobactam 3.375 GM VIAL ONE ×2 (13:03→20:03)
[2021-10-31] MEDS ORDERED: Sodium Chloride 0.9% 100 ML ONE ×2 (13:03→20:03)
[2021-10-31] MEDS ORDERED: Vancomycin 1.5 GRAM/300 ML BAG 1.5 GM in Premix Bag 1 BAG IVPB SCH (15:00)
[2021-10-31] MEDS: Carvedilol 3.125 MG TAB PO SCH (16:51)
[2021-10-31 19:35] LABS: Vancomycin, Trough 38.9 ug/mL
[2021-11-01 04:19] LABS: Hemoglobin 8.7 g/dL (13.5-17.5); Mean Corpuscular HGB CONC 34.1 g/dL (32.0-36.0); Mean Corpuscular Hemoglobin 30.4 pg (27.0-33.0); Mean Corpuscular Volume 89.2 fl (81.2-95.1); Mean Platelet Volume 10.2 fl (7.4-10.4); Platelet Count 58 10x3/uL (150-450); RBC Distribution Width 14.8 % (11.5-14.5); Red Blood Cell (RBC) Count 2.86 10x6/uL (4.32-5.72); White Blood Cell (WBC) Count 0.7 10x3/uL (3.5-10.5)
[2021-11-01 04:20] LABS: ALT (SGPT) 10 U/L (8-55); AST (SGOT) 7 U/L (5-34); Albumin 2.6 g/dL (3.4-4.8); Alkaline Phosphatase 45 U/L (40-110); Anion Gap 15 mmol/L (10-20); BUN (Urea Nitrogen) 20 mg/dL (8.4-25.7); Bilirubin, Total 0.5 mg/dL (0.2-1.2); Calc. Creatinine Clearance 68 mL/min (70-130); Calcium 8.7 mg/dL (7.8-10.44); Carbon Dioxide 20 mmol/L (23-31); Chloride 111 mmol/L (98-107); Estimated GFR 49; Globulin 2.6 g/dL (2.4-3.5); Glucose 170 mg/dL (80-115); Potassium 3.7 mmol/L (3.5-5.1); Protein, Total 5.2 g/dL (5.8-8.1); Sodium 142 mmol/L (136-145)
[2021-11-01] MEDS: Hydrocortisone Sod Succ/PF 100 mg/2 ml Vial IVP SCH ×4 (05:43→23:33)
[2021-11-01] MEDS: Piperacillin/Tazobactam 3.375 GM in Sodium Chloride 0.9% 100 ML IVPB SCH (05:44)
[2021-11-01] MEDS: Vancomycin 25 MG/ML Oral SOLN PO SCH (05:44)
[2021-11-01] MEDS: Levothyroxine Sodium 75 MCG TAB PO SCH (05:45)
[2021-11-01] MEDS: HumaLOG 300 UNITS/3 ML VIAL SC PRN ×3 (05:46→23:35)
[2021-11-01 06:37] LABS: MDiff Complete? YES
[2021-11-01 06:39] LABS: Platelet Morphology Comment Appears Decreased
[2021-11-01 06:56] LABS: Band 4 % (5-11); Eosinophils 2 % (0-10); Lymphocytes 35 % (21-51); Metamyelocyte 5 % (0-0); Monocytes 13 % (0-10); Neutrophil 37 % (42-75); Reactive Lymphocytes 3 % (0-10)
[2021-11-01 06:57] LABS: Anisocytosis SLIGHT = 6-15 cells (100X) (0-5/hpf); Macrocytosis SLIGHT = 6-15 cells (100X) (0-5/hpf)
[2021-11-01 06:58] LABS: Polychromasia SLIGHT = 2-3 cells (100X) (0-2/hpf); Spherocytes SLIGHT = 1-5 cells (100X) (None Seen); Tear Drops SLIGHT = 2-5 cells (100X) (0-1/hpf)
[2021-11-01] MEDS: Lactated Ringer's 1,000 ML IV SCH ×3 (08:09→23:33)
[2021-11-01] MEDS: Cholecalciferol 1,000 UNITS (25 MCG) TAB PO SCH (08:10)
[2021-11-01] MEDS: valACYclovir 500 MG TAB PO SCH ×2 (08:10→20:28)
[2021-11-01] MEDS: Carvedilol 3.125 MG TAB PO SCH ×3 (08:11→17:25)
[2021-11-01] MEDS: Apixaban 5 MG TAB PO SCH ×2 (08:11→20:31)
[2021-11-01] MEDS: Amiodarone 200 MG TAB PO SCH ×3 (08:11→20:28)
[2021-11-01 14:15] LABS: Vancomycin, Trough 15.4 ug/mL
[2021-11-01] MEDS ORDERED: Amlodipine 5 MG TAB PO SCH (15:00)
[2021-11-01] MEDS ORDERED: Vancomycin 1.5 GRAM/300 ML BAG 1.5 GM in Premix Bag 1 BAG IVPB SCH (15:00)
[2021-11-02 05:00] LABS: ALT (SGPT) 11 U/L (8-55); AST (SGOT) 8 U/L (5-34); Albumin 2.8 g/dL (3.4-4.8); Alkaline Phosphatase 46 U/L (40-110); Anion Gap 14 mmol/L (10-20); BUN (Urea Nitrogen) 17 mg/dL (8.4-25.7); Bilirubin, Total 0.5 mg/dL (0.2-1.2); Calc. Creatinine Clearance 71 mL/min (70-130); Calcium 8.9 mg/dL (7.8-10.44); Carbon Dioxide 21 mmol/L (23-31); Chloride 111 mmol/L (98-107); Estimated GFR 51; Globulin 2.4 g/dL (2.4-3.5); Glucose 153 mg/dL (80-115); Potassium 3.4 mmol/L (3.5-5.1); Protein, Total 5.2 g/dL (5.8-8.1); Sodium 143 mmol/L (136-145)
[2021-11-02 05:24] LABS: #Monocytes 0.2 10x3/uL (0.0-1.1); #Neutrophils 0.4 10x3/uL (1.5-8.4); %Basophils 0.8 % (0.0-2.0); %Lymphocytes 25.4 % (18.0-47.0); %Monocytes 18.6 % (0.0-10.0); Hemoglobin 9.3 g/dL (13.5-17.5); Mean Corpuscular HGB CONC 33.7 g/dL (32.0-36.0); Mean Platelet Volume 9.6 fl (7.4-10.4); Platelet Count 67 10x3/uL (150-450); RBC Distribution Width 14.6 % (11.5-14.5); White Blood Cell (WBC) Count 1.2 10x3/uL (3.5-10.5)
[2021-11-02] MEDS: Lactated Ringer's 1,000 ML IV SCH ×2 (06:17→11:15)
[2021-11-02] MEDS: Hydrocortisone Sod Succ/PF 100 mg/2 ml Vial IVP SCH ×4 (06:59→23:47)
[2021-11-02] MEDS: Levothyroxine Sodium 75 MCG TAB PO SCH (06:59)
[2021-11-02] MEDS ORDERED: Amlodipine 5 MG TAB PO SCH ×2 (09:00→13:45)
[2021-11-02] MEDS: valACYclovir 500 MG TAB PO SCH ×2 (10:19→20:57)
[2021-11-02] MEDS: Apixaban 5 MG TAB PO SCH ×2 (10:19→20:58)
[2021-11-02] MEDS: Cholecalciferol 1,000 UNITS (25 MCG) TAB PO SCH (10:20)
[2021-11-02] MEDS: Amiodarone 200 MG TAB PO SCH ×2 (10:22→20:58)
[2021-11-02] MEDS: Carvedilol 3.125 MG TAB PO SCH (10:23)
[2021-11-02] MEDS: HumaLOG 300 UNITS/3 ML VIAL SC PRN ×2 (12:10→17:47)
[2021-11-02] MEDS ORDERED: Lisinopril 5 MG TAB PO SCH (13:45)
[2021-11-02] MEDS: Carvedilol 6.25 MG TAB PO SCH (17:47)
[2021-11-03 04:49] LABS: ALT (SGPT) 12 U/L (8-55); AST (SGOT) 12 U/L (5-34); Albumin 2.7 g/dL (3.4-4.8); Alkaline Phosphatase 49 U/L (40-110); Anion Gap 15 mmol/L (10-20); BUN (Urea Nitrogen) 16 mg/dL (8.4-25.7); Bilirubin, Total 0.7 mg/dL (0.2-1.2); Calc. Creatinine Clearance 70 mL/min (70-130); Calcium 8.8 mg/dL (7.8-10.44); Carbon Dioxide 23 mmol/L (23-31); Chloride 109 mmol/L (98-107); Estimated GFR 51; Globulin 2.3 g/dL (2.4-3.5); Glucose 141 mg/dL (80-115); Hemoglobin 9.7 g/dL (13.5-17.5); Mean Corpuscular HGB CONC 33.9 g/dL (32.0-36.0); Mean Corpuscular Hemoglobin 30.1 pg (27.0-33.0); Mean Corpuscular Volume 88.8 fl (81.2-95.1); Mean Platelet Volume 9.9 fl (7.4-10.4); Platelet Count 86 10x3/uL (150-450); RBC Distribution Width 14.6 % (11.5-14.5); Red Blood Cell (RBC) Count 3.22 10x6/uL (4.32-5.72); Sodium 144 mmol/L (136-145); White Blood Cell (WBC) Count 1.6 10x3/uL (3.5-10.5)
[2021-11-03] MEDS: Hydrocortisone Sod Succ/PF 100 mg/2 ml Vial IVP SCH ×3 (05:21→16:58)
[2021-11-03] MEDS: Levothyroxine Sodium 75 MCG TAB PO SCH (05:21)
[2021-11-03 07:41] LABS: MDiff Complete? YES
[2021-11-03 08:07] LABS: Band 2 % (5-11); Eosinophils 2 % (0-10); Lymphocytes 42 % (21-51); Metamyelocyte 2 % (0-0); Monocytes 8 % (0-10); Neutrophil 44 % (42-75); Nucleated RBC 2 % (0)
[2021-11-03 08:08] LABS: Toxic Granulation SLIGHT
[2021-11-03 08:09] LABS: Anisocytosis SLIGHT = 6-15 cells (100X) (0-5/hpf)
[2021-11-03] MEDS ORDERED: Potassium Chloride 20 MEQ TAB PO SCH (08:15)
[2021-11-03] MEDS: Cholecalciferol 1,000 UNITS (25 MCG) TAB PO SCH (08:55)
[2021-11-03] MEDS: Amlodipine 10 MG TAB PO SCH (08:55)
[2021-11-03] MEDS: Lisinopril 5 MG TAB PO SCH (08:55)
[2021-11-03] MEDS: Amiodarone 200 MG TAB PO SCH ×2 (08:56→20:55)
[2021-11-03] MEDS: Apixaban 5 MG TAB PO SCH ×2 (08:56→20:55)
[2021-11-03] MEDS: Carvedilol 6.25 MG TAB PO SCH ×2 (08:56→16:58)
[2021-11-03] MEDS: valACYclovir 500 MG TAB PO SCH ×2 (08:56→20:54)
[2021-11-03] MEDS: Clotrimazole 1% Cream 15 GM TUBE TOP SCH (08:57)
[2021-11-03] MEDS: Carvedilol 12.5 MG TAB PO SCH (16:58)
[2021-11-03] MEDS: HumaLOG 300 UNITS/3 ML VIAL SC PRN ×2 (19:43→21:10)
[2021-11-04] MEDS: Hydrocortisone Sod Succ/PF 100 mg/2 ml Vial IVP SCH ×3 (00:46→20:28)
[2021-11-04 04:27] LABS: Hemoglobin 9.9 g/dL (13.5-17.5); Mean Corpuscular HGB CONC 34.1 g/dL (32.0-36.0); Mean Corpuscular Hemoglobin 29.6 pg (27.0-33.0); Mean Corpuscular Volume 86.8 fl (81.2-95.1); Mean Platelet Volume 9.7 fl (7.4-10.4); Platelet Count 101 10x3/uL (150-450); RBC Distribution Width 14.8 % (11.5-14.5); Red Blood Cell (RBC) Count 3.34 10x6/uL (4.32-5.72); White Blood Cell (WBC) Count 1.6 10x3/uL (3.5-10.5)
[2021-11-04 04:49] LABS: ALT (SGPT) 12 U/L (8-55); AST (SGOT) 13 U/L (5-34); Albumin 2.9 g/dL (3.4-4.8); Alkaline Phosphatase 57 U/L (40-110); Anion Gap 15 mmol/L (10-20); BUN (Urea Nitrogen) 16 mg/dL (8.4-25.7); Calc. Creatinine Clearance 65 mL/min (70-130); Calcium 8.7 mg/dL (7.8-10.44); Carbon Dioxide 24 mmol/L (23-31); Chloride 108 mmol/L (98-107); Estimated GFR 46; Globulin 2.3 g/dL (2.4-3.5); Glucose 139 mg/dL (80-115); Protein, Total 5.2 g/dL (5.8-8.1); Sodium 144 mmol/L (136-145)
[2021-11-04 04:53] LABS: Potassium 2.9 mmol/L (3.5-5.1)
[2021-11-04] MEDS: Levothyroxine Sodium 75 MCG TAB PO SCH (05:22)
[2021-11-04 06:06] LABS: MDiff Complete? YES
[2021-11-04 06:08] LABS: Platelet Morphology Comment Appears Decreased
[2021-11-04] MEDS ORDERED: Potassium Chloride 20 MEQ TAB PO SCH ×2 (06:15→11:00)
[2021-11-04 06:16] LABS: Band 20 % (5-11); Eosinophils 3 % (0-10); Lymphocytes 21 % (21-51); Metamyelocyte 18 % (0-0); Monocytes 9 % (0-10); Myelocyte 5 % (0-0); Neutrophil 21 % (42-75); Nucleated RBC 7 % (0); Reactive Lymphocytes 1 % (0-10)
[2021-11-04 06:56] LABS: Reflex for Review?? YES
[2021-11-04] MEDS: Lisinopril 5 MG TAB PO SCH (09:18)
[2021-11-04] MEDS: Amlodipine 10 MG TAB PO SCH (09:37)
[2021-11-04] MEDS: Carvedilol 12.5 MG TAB PO SCH ×2 (09:37→17:30)
[2021-11-04] MEDS: valACYclovir 500 MG TAB PO SCH ×2 (09:38→20:27)
[2021-11-04] MEDS: Amiodarone 200 MG TAB PO SCH ×2 (09:38→20:27)
[2021-11-04] MEDS: Cholecalciferol 1,000 UNITS (25 MCG) TAB PO SCH (09:38)
[2021-11-04] MEDS: Apixaban 5 MG TAB PO SCH ×2 (09:38→20:27)
[2021-11-04] MEDS: Clotrimazole 1% Cream 15 GM TUBE TOP SCH (09:39)
[2021-11-04] MEDS: Sodium Chloride 0.45% 1,000 ML IV SCH ×2 (09:39→23:14)
[2021-11-04] MEDS ORDERED: Hydrocortisone Sod Succ/PF 100 mg/2 ml Vial IVP SCH (14:00)
[2021-11-05 04:14] LABS: Mean Corpuscular HGB CONC 34.5 g/dL (32.0-36.0); Mean Corpuscular Hemoglobin 30.1 pg (27.0-33.0); Mean Corpuscular Volume 87.2 fl (81.2-95.1); Mean Platelet Volume 9.9 fl (7.4-10.4); Platelet Count 104 10x3/uL (150-450); Red Blood Cell (RBC) Count 3.66 10x6/uL (4.32-5.72); White Blood Cell (WBC) Count 1.6 10x3/uL (3.5-10.5)
[2021-11-05 04:30] LABS: Anion Gap 13 mmol/L (10-20); BUN (Urea Nitrogen) 14 mg/dL (8.4-25.7); Calc. Creatinine Clearance 67 mL/min (70-130); Calcium 8.7 mg/dL (7.8-10.44); Carbon Dioxide 27 mmol/L (23-31); Chloride 105 mmol/L (98-107); Estimated GFR 48; Glucose 130 mg/dL (80-115); Potassium 3.3 mmol/L (3.5-5.1); Sodium 142 mmol/L (136-145)
[2021-11-05 04:43] LABS: MDiff Complete? YES
[2021-11-05 04:53] LABS: Band 4 % (5-11); Eosinophils 3 % (0-10); Lymphocytes 30 % (21-51); Metamyelocyte 5 % (0-0); Monocytes 9 % (0-10); Neutrophil 38 % (42-75); Nucleated RBC 5 % (0); Reactive Lymphocytes 11 % (0-10)
[2021-11-05 04:54] LABS: Platelet Morphology Comment Appears Decreased; Toxic Granulation SLIGHT
[2021-11-05 04:55] LABS: Dohle Bodies SLIGHT; Polychromasia SLIGHT = 2-3 cells (100X) (0-2/hpf)
[2021-11-05] MEDS: Levothyroxine Sodium 75 MCG TAB PO SCH (05:40)
[2021-11-05] MEDS ORDERED: Potassium Chloride 20 MEQ TAB PO SCH (08:00)
[2021-11-05] MEDS: valACYclovir 500 MG TAB PO SCH (09:06)
[2021-11-05] MEDS: Apixaban 5 MG TAB PO SCH (09:06)
[2021-11-05] MEDS: Hydrocortisone Sod Succ/PF 100 mg/2 ml Vial IVP SCH (09:06)
[2021-11-05] MEDS: Amlodipine 10 MG TAB PO SCH (09:06)
[2021-11-05] MEDS: Carvedilol 12.5 MG TAB PO SCH (09:07)
[2021-11-05] MEDS: Cholecalciferol 1,000 UNITS (25 MCG) TAB PO SCH (09:07)
[2021-11-05] MEDS: Amiodarone 200 MG TAB PO SCH (09:07)
[2021-11-05] MEDS: Clotrimazole 1% Cream 15 GM TUBE TOP SCH (09:07)
[2021-11-05 12:31] VITALS: BP 132/71; TEMP 97.4
[2021-11-05] MEDS: Sodium Chloride 0.45% 1,000 ML IV SCH (14:02)
[2021-11-05] MEDS ORDERED: Amiodarone 200 MG TAB PO SCH (21:00)
[2021-11-09 22:37] LABS: HSV 1 - DNA Negative (Negative); HSV 2 - DNA Negative (Negative)
== END 2021-11-05 14:39 | disposition home or self-care (01) | DRG 871 ==
LOC: CSHERS 11:56 → CSHIMCU 16:29 → CSHTELE 10-31 18:38
PROVIDERS: ADMIT Family Medicine; ATTEND Internal Medicine
PROC: 3E043XZ Introduction of Vasopressor into Central Vein, Percutaneous Approach (ICD-10-PCS; principal; 2021-10-29)
PROC: 02HV33Z Insertion of Infusion Device into Superior Vena Cava, Percutaneous Approach (ICD-10-PCS; 2021-10-29)
PROC: 3E04329 Introduction of Other Anti-infective into Central Vein, Percutaneous Approach (ICD-10-PCS; 2021-10-29)
DX: A41.9 Sepsis, unspecified organism (principal); R65.21 Severe sepsis with septic shock; G93.41 Metabolic encephalopathy; C91.10 Chronic lymphocytic leukemia of B-cell type not having achieved remission; D89.811 Chronic graft-versus-host disease; Z94.81 Bone marrow transplant status; I47.1 Supraventricular tachycardia; N17.9 Acute kidney failure, unspecified; D61.818 Other pancytopenia; I47.2 Ventricular tachycardia; N39.0 Urinary tract infection, site not specified; Z20.822 Contact with and (suspected) exposure to COVID-19; D69.6 Thrombocytopenia, unspecified; E03.9 Hypothyroidism, unspecified; I12.9 Hypertensive chronic kidney disease with stage 1 through stage 4 chronic kidney disease, or unspecified chronic kidney disease; E09.9 Drug or chemical induced diabetes mellitus without complications; I48.0 Paroxysmal atrial fibrillation; E87.6 Hypokalemia; T38.0X5A Adverse effect of glucocorticoids and synthetic analogues, initial encounter; D70.9 Neutropenia, unspecified; N18.9 Chronic kidney disease, unspecified; Z92.21 Personal history of antineoplastic chemotherapy; Z79.899 Other long term (current) drug therapy; Z79.52 Long term (current) use of systemic steroids; Z88.8 Allergy status to other drugs, medicaments and biological substances; Z79.890 Hormone replacement therapy; Z22.322 Carrier or suspected carrier of Methicillin resistant Staphylococcus aureus; Z86.16 Personal history of COVID-19; Z87.01 Personal history of pneumonia (recurrent)
CPT/HCPCS: 36415; 36416; 36556; 70450; 71045; 74177; 80048; 80053; 80202; 82947; 83605; 83735; 84100; 84145; 84439; 84443; 84481; 85025; 85060; 87040; 87077; 87086; 87186; 87324; 87385; 87449; 87497; 87505; 87529; 87899; 93005; 96361; 96365; 96367; 96375; 97139; J0692; J1160; J1447; J1720; J1815; J2543; J3370; J3475; J3490; J7120

== ENCOUNTER 2021-11-18 10:28 | Inpatient (IN) | payer MEDICARE ==
[2021-11-18] MEDS ORDERED: Cefepime 2 GM VIAL ONE (11:02)
[2021-11-18] MEDS ORDERED: Vancomycin HCl 500 MG VIAL ONE (11:02)
[2021-11-18 11:24] LABS: Hemoglobin 10.4 g/dL (13.5-17.5); Mean Corpuscular HGB CONC 32.7 g/dL (32.0-36.0); Mean Corpuscular Hemoglobin 29.6 pg (27.0-33.0); Mean Corpuscular Volume 90.6 fl (81.2-95.1); Mean Platelet Volume 8.9 fl (7.4-10.4); Platelet Count 137 10x3/uL (150-450); RBC Distribution Width 16.4 % (11.5-14.5); Red Blood Cell (RBC) Count 3.51 10x6/uL (4.32-5.72); White Blood Cell (WBC) Count 2.9 10x3/uL (3.5-10.5)
[2021-11-18 11:25] LABS: MDiff Complete? YES
[2021-11-18 11:49] LABS: ALT (SGPT) 10 U/L (8-55); AST (SGOT) 10 U/L (5-34); Albumin 3.5 g/dL (3.4-4.8); Alkaline Phosphatase 67 U/L (40-110); Anion Gap 15 mmol/L (10-20); BUN (Urea Nitrogen) 23 mg/dL (8.4-25.7); Bilirubin, Total 1.3 mg/dL (0.2-1.2); Calc. Creatinine Clearance 0 mL/min (70-130); Calcium 9.5 mg/dL (7.8-10.44); Carbon Dioxide 24 mmol/L (23-31); Chloride 104 mmol/L (98-107); Estimated GFR 50; Globulin 2.8 g/dL (2.4-3.5); Glucose 152 mg/dL (80-115); Potassium 4.2 mmol/L (3.5-5.1); Protein, Total 6.3 g/dL (5.8-8.1); Sodium 139 mmol/L (136-145)
[2021-11-18 12:13] LABS: SARS-CoV-2 NAA Rapid Test Not Detected (NotDetected)
[2021-11-18 12:37] LABS: Band 2 % (5-11); Eosinophils 3 % (0-10); Lymphocytes 31 % (21-51); Metamyelocyte 2 % (0-0); Monocytes 8 % (0-10); Myelocyte 2 % (0-0); Neutrophil 51 % (42-75); Nucleated RBC 2 % (0); Reactive Lymphocytes 1 % (0-10)
[2021-11-18 12:38] LABS: Anisocytosis SLIGHT = 6-15 cells (100X) (0-5/hpf); Hypochromia SLIGHT = 6-15 cells (100X) (0-5/hpf); Platelet Morphology Comment Appears Decreased; Polychromasia SLIGHT = 2-3 cells (100X) (0-2/hpf); Toxic Granulation SLIGHT
[2021-11-18] MEDS ORDERED: HumaLOG 300 UNITS/3 ML VIAL SC PRN (13:27)
[2021-11-18] MEDS ORDERED: Senokot S 8.6-50 MG TAB PO PRN (13:27)
[2021-11-18] MEDS ORDERED: Acetaminophen 325 MG TAB PO PRN (13:27)
[2021-11-18] MEDS ORDERED: Ondansetron PF 4 MG/2 ML Vial IVP PRN (13:27)
[2021-11-18] MEDS ORDERED: HYDROcodone/Acetaminophen 5/325 mg Tablet PO PRN (13:27)
[2021-11-18] MEDS ORDERED: Ondansetron ODT 4 MG TAB PO PRN (13:27)
[2021-11-18] MEDS ORDERED: Dextrose 5% in Water 1,000 ML IV PRN (13:27)
[2021-11-18] MEDS ORDERED: Dextrose 50% Abboject 50 ML SYRINGE SLOW IVP PRN (13:27)
[2021-11-18] MEDS ORDERED: Bisacodyl 5 MG TAB PO PRN (13:27)
[2021-11-18 14:38] LABS: Lactic Acid 1.7 mmol/L (0.5-2.2)
[2021-11-18 16:36] VITALS: BMI 32.3
[2021-11-18] MEDS: Sodium Chloride 0.9% 1,000 ML IV SCH (18:15)
[2021-11-18] MEDS: Carvedilol 12.5 MG TAB PO SCH (18:15)
[2021-11-18] MEDS ORDERED: Vancomycin 1 GM in Premix Bag 1 BAG IVPB SCH (21:00)
[2021-11-18] MEDS: Amiodarone 200 MG TAB PO SCH (21:21)
[2021-11-18] MEDS: Apixaban 5 MG TAB PO SCH (21:21)
[2021-11-18] MEDS: Cefepime 1 GM in Sodium Chloride 0.9% 100 ML IVPB SCH (23:19)
[2021-11-18] MEDS: Clotrimazole 1% Cream 15 GM TUBE TOP SCH (23:20)
[2021-11-19] MEDS: Sodium Chloride 0.9% 1,000 ML IV SCH ×4 (00:04→21:09)
[2021-11-19] MEDS: Dexamethasone 1 MG TAB PO SCH (08:55)
[2021-11-19] MEDS: Clotrimazole 1% Cream 15 GM TUBE TOP SCH ×2 (08:55→21:08)
[2021-11-19] MEDS: Apixaban 5 MG TAB PO SCH ×2 (08:56→21:08)
[2021-11-19] MEDS: Amiodarone 200 MG TAB PO SCH ×2 (08:56→21:08)
[2021-11-19] MEDS: Carvedilol 12.5 MG TAB PO SCH ×2 (08:56→18:43)
[2021-11-19] MEDS ORDERED: Amlodipine 10 MG TAB PO SCH (09:00)
[2021-11-19 10:34] LABS: Hemoglobin 9.4 g/dL (13.5-17.5); Mean Corpuscular HGB CONC 33.3 g/dL (32.0-36.0); Mean Corpuscular Hemoglobin 29.7 pg (27.0-33.0); Mean Platelet Volume 8.9 fl (7.4-10.4); Platelet Count 108 10x3/uL (150-450); Red Blood Cell (RBC) Count 3.17 10x6/uL (4.32-5.72); White Blood Cell (WBC) Count 2.3 10x3/uL (3.5-10.5)
[2021-11-19 10:35] LABS: #Monocytes 0.2 10x3/uL (0.0-1.1); #Neutrophils 1.2 10x3/uL (1.5-8.4); %Basophils 0.9 % (0.0-2.0); %Eosinophils 1.3 % (0.0-6.0); %Lymphocytes 17.8 % (18.0-47.0); %Monocytes 10.4 % (0.0-10.0); %Neutrophils 51.8 % (40.0-75.0)
[2021-11-19 10:51] LABS: Anion Gap 12 mmol/L (10-20); BUN (Urea Nitrogen) 16 mg/dL (8.4-25.7); Calc. Creatinine Clearance 98 mL/min (70-130); Calcium 9.3 mg/dL (7.8-10.44); Carbon Dioxide 23 mmol/L (23-31); Chloride 107 mmol/L (98-107); Estimated GFR 74; Glucose 115 mg/dL (80-115); Potassium 3.8 mmol/L (3.5-5.1); Sodium 138 mmol/L (136-145)
[2021-11-19 10:58] LABS: Band 12 % (5-11); Lymphocytes 24 % (21-51); Metamyelocyte 2 % (0-0); Monocytes 9 % (0-10); Neutrophil 53 % (42-75)
[2021-11-19 11:00] LABS: Dohle Bodies SLIGHT; Hypersemented Neutrophil SLIGHT; Platelet Morphology Comment Appears Decreased; Toxic Granulation SLIGHT; Vacuoles SLIGHT
[2021-11-19] MEDS ORDERED: VANCOMYCIN 2 GRAM/400 ML BAG 2 GM in Premix Bag 1 BAG IVPB SCH (11:00)
[2021-11-19 11:01] LABS: Anisocytosis SLIGHT = 6-15 cells (100X) (0-5/hpf); Hypochromia SLIGHT = 6-15 cells (100X) (0-5/hpf); Macrocytosis SLIGHT = 6-15 cells (100X) (0-5/hpf); Microcytosis SLIGHT = 6-15 cells (100X) (0-5/hpf); Schistocytes SLIGHT = 2-5 cells (100X) (0-1/hpf)
[2021-11-19] MEDS: Cefepime 1 GM in Sodium Chloride 0.9% 100 ML IVPB SCH ×2 (11:06→22:45)
[2021-11-19] MEDS: Vancomycin 1.5 GRAM/300 ML BAG 1.5 GM in Premix Bag 1 BAG IVPB SCH (11:07)
[2021-11-19] MEDS ORDERED: Ambisome 300 MG in Dextrose 5% in Water 250 ML IVPB SCH (16:00)
[2021-11-19] MEDS: Micafungin 100 MG in Sodium Chloride 0.9% 100 ML IVPB SCH (18:43)
[2021-11-19 21:49] LABS: Bilirubin Neg (Negative); Blood, Urine Negative (Negative); Clarity Clear (Clear); Glucose, Urine (Dipstick) 50 mg/dL (Negative); Ketone, Urine Negative (Negative); Leukocyte Negative (Negative); Nitrite Negative (Negative); Protein, Urine (Dipstick) 30 mg/dl (Neg-Trace); Specific Gravity, Urine 1.015 (1.002-1.036); Urobilinogen Normal mg/dL (Less than 2)
[2021-11-19 21:53] LABS: Urine Culture Reflex No No
[2021-11-19 21:55] LABS: Bacteria/HPF None Seen HPF (None Seen); RBC/HPF 0-3 HPF (0-3); Squamous Epithelial 0-3 HPF (0-3); WBC/HPF 0-3 HPF (0-3)
[2021-11-20 04:33] LABS: Hemoglobin 9.1 g/dL (13.5-17.5); Mean Corpuscular HGB CONC 34.1 g/dL (32.0-36.0); Mean Corpuscular Hemoglobin 29.6 pg (27.0-33.0); Mean Platelet Volume 9.2 fl (7.4-10.4); Platelet Count 120 10x3/uL (150-450); Red Blood Cell (RBC) Count 3.07 10x6/uL (4.32-5.72); White Blood Cell (WBC) Count 2.4 10x3/uL (3.5-10.5)
[2021-11-20] MEDS: Sodium Chloride 0.9% 1,000 ML IV SCH ×3 (04:39→21:31)
[2021-11-20 04:44] LABS: Anion Gap 16 mmol/L (10-20); BUN (Urea Nitrogen) 16 mg/dL (8.4-25.7); Calc. Creatinine Clearance 98 mL/min (70-130); Calcium 8.9 mg/dL (7.8-10.44); Carbon Dioxide 18 mmol/L (23-31); Chloride 108 mmol/L (98-107); Estimated GFR 74; Glucose 150 mg/dL (80-115); Potassium 4.4 mmol/L (3.5-5.1); Sodium 138 mmol/L (136-145)
[2021-11-20 06:09] LABS: MDiff Complete? YES
[2021-11-20 07:03] LABS: Eosinophils 1 % (0-10); Lymphocytes 12 % (21-51); Monocytes 18 % (0-10); Neutrophil 65 % (42-75); Reactive Lymphocytes 4 % (0-10)
[2021-11-20 07:06] LABS: Hypochromia SLIGHT = 6-15 cells (100X) (0-5/hpf); Polychromasia SLIGHT = 2-3 cells (100X) (0-2/hpf)
[2021-11-20 07:07] LABS: Platelet Morphology Comment Appears Decreased
[2021-11-20] MEDS: Carvedilol 12.5 MG TAB PO SCH ×2 (09:00→17:43)
[2021-11-20] MEDS: Apixaban 5 MG TAB PO SCH ×2 (09:00→21:25)
[2021-11-20] MEDS: Dexamethasone 1 MG TAB PO SCH (09:00)
[2021-11-20] MEDS: Clotrimazole 1% Cream 15 GM TUBE TOP SCH ×2 (09:01→21:25)
[2021-11-20] MEDS: Amiodarone 200 MG TAB PO SCH ×2 (09:01→21:25)
[2021-11-20] MEDS: Cefepime 1 GM in Sodium Chloride 0.9% 100 ML IVPB SCH ×2 (12:05→23:54)
[2021-11-20] MEDS: Vancomycin HCl 750 MG in Sodium Chloride 0.9% 250 ML 250 ML IVPB SCH (12:48)
[2021-11-20] MEDS: Vancomycin 1.5 GRAM/300 ML BAG 1.5 GM in Premix Bag 1 BAG IVPB SCH (13:56)
[2021-11-20] MEDS: Micafungin 100 MG in Sodium Chloride 0.9% 100 ML IVPB SCH (17:43)
[2021-11-21] MEDS: Vancomycin HCl 750 MG in Sodium Chloride 0.9% 250 ML 250 ML IVPB SCH ×2 (00:58→13:33)
[2021-11-21 04:06] LABS: #Monocytes 0.2 10x3/uL (0.0-1.1); #Neutrophils 0.9 10x3/uL (1.5-8.4); %Eosinophils 0.5 % (0.0-6.0); %Lymphocytes 25.5 % (18.0-47.0); %Monocytes 8.8 % (0.0-10.0); %Neutrophils 42.1 % (40.0-75.0); Hemoglobin 9.6 g/dL (13.5-17.5); Mean Corpuscular HGB CONC 34.3 g/dL (32.0-36.0); Mean Corpuscular Hemoglobin 29.5 pg (27.0-33.0); Mean Corpuscular Volume 86.2 fl (81.2-95.1); Mean Platelet Volume 8.8 fl (7.4-10.4); Platelet Count 129 10x3/uL (150-450); RBC Distribution Width 15.7 % (11.5-14.5); Red Blood Cell (RBC) Count 3.25 10x6/uL (4.32-5.72)
[2021-11-21 04:17] LABS: Anion Gap 15 mmol/L (10-20); BUN (Urea Nitrogen) 15 mg/dL (8.4-25.7); Calc. Creatinine Clearance 95 mL/min (70-130); Calcium 9.1 mg/dL (7.8-10.44); Carbon Dioxide 20 mmol/L (23-31); Chloride 108 mmol/L (98-107); Estimated GFR 72; Glucose 133 mg/dL (80-115); Potassium 4.1 mmol/L (3.5-5.1); Sodium 139 mmol/L (136-145)
[2021-11-21] MEDS: Sodium Chloride 0.9% 1,000 ML IV SCH ×3 (05:08→21:16)
[2021-11-21 05:13] LABS: MDiff Complete? YES
[2021-11-21 05:20] LABS: Band 3 % (5-11); Lymphocytes 39 % (21-51); Monocytes 6 % (0-10); Neutrophil 52 % (42-75)
[2021-11-21 05:22] LABS: Anisocytosis SLIGHT = 6-15 cells (100X) (0-5/hpf); Hypochromia SLIGHT = 6-15 cells (100X) (0-5/hpf); Microcytosis SLIGHT = 6-15 cells (100X) (0-5/hpf); Platelet Morphology Comment Appears Increased
[2021-11-21] MEDS: Amiodarone 200 MG TAB PO SCH ×2 (10:39→21:05)
[2021-11-21] MEDS: Carvedilol 12.5 MG TAB PO SCH ×2 (10:39→18:15)
[2021-11-21] MEDS: Cefepime 1 GM in Sodium Chloride 0.9% 100 ML IVPB SCH ×2 (10:40→21:05)
[2021-11-21] MEDS: Clotrimazole 1% Cream 15 GM TUBE TOP SCH ×2 (10:40→21:26)
[2021-11-21] MEDS: Dexamethasone 1 MG TAB PO SCH (10:40)
[2021-11-21] MEDS: Apixaban 5 MG TAB PO SCH ×2 (10:40→21:05)
[2021-11-21] MEDS: HumaLOG 300 UNITS/3 ML VIAL SC PRN (18:15)
[2021-11-21] MEDS: Micafungin 100 MG in Sodium Chloride 0.9% 100 ML IVPB SCH (18:15)
[2021-11-21 23:19] LABS: Vancomycin, Trough 13.8 ug/mL
[2021-11-22] MEDS: Vancomycin HCl 750 MG in Sodium Chloride 0.9% 250 ML 250 ML IVPB SCH ×2 (00:39→13:01)
[2021-11-22 04:38] LABS: Hemoglobin 10.2 g/dL (13.5-17.5); Mean Corpuscular HGB CONC 34.1 g/dL (32.0-36.0); Mean Corpuscular Hemoglobin 29.2 pg (27.0-33.0); Mean Corpuscular Volume 85.7 fl (81.2-95.1); Mean Platelet Volume 8.7 fl (7.4-10.4); Platelet Count 159 10x3/uL (150-450); RBC Distribution Width 15.8 % (11.5-14.5); Red Blood Cell (RBC) Count 3.49 10x6/uL (4.32-5.72); White Blood Cell (WBC) Count 1.9 10x3/uL (3.5-10.5)
[2021-11-22 04:59] LABS: Anion Gap 14 mmol/L (10-20); BUN (Urea Nitrogen) 20 mg/dL (8.4-25.7); Calc. Creatinine Clearance 89 mL/min (70-130); Carbon Dioxide 21 mmol/L (23-31); Chloride 106 mmol/L (98-107); Estimated GFR 66; Glucose 145 mg/dL (80-115); Potassium 4.1 mmol/L (3.5-5.1); Sodium 137 mmol/L (136-145)
[2021-11-22 05:28] LABS: MDiff Complete? YES
[2021-11-22 05:39] LABS: Band 8 % (5-11); Lymphocytes 27 % (21-51); Metamyelocyte 2 % (0-0); Monocytes 11 % (0-10); Neutrophil 52 % (42-75)
[2021-11-22 05:40] LABS: Platelet Morphology Comment PLT clumps seen-ADEQ
[2021-11-22 05:43] LABS: Microcytosis SLIGHT = 6-15 cells (100X) (0-5/hpf)
[2021-11-22] MEDS ORDERED: Clotrimazole 1% Cream 15 GM TUBE TOP SCH (09:00)
[2021-11-22] MEDS: Apixaban 5 MG TAB PO SCH ×2 (10:14→20:33)
[2021-11-22] MEDS: Amiodarone 200 MG TAB PO SCH ×2 (10:14→20:33)
[2021-11-22] MEDS: Carvedilol 12.5 MG TAB PO SCH ×2 (10:14→17:25)
[2021-11-22] MEDS: Dexamethasone 1 MG TAB PO SCH (10:15)
[2021-11-22] MEDS: Cefepime 1 GM in Sodium Chloride 0.9% 100 ML IVPB SCH ×2 (11:32→22:45)
[2021-11-22] MEDS: Sodium Chloride 0.9% 1,000 ML IV SCH ×2 (17:21→17:25)
[2021-11-22] MEDS: Micafungin 100 MG in Sodium Chloride 0.9% 100 ML IVPB SCH (17:22)
[2021-11-22] MEDS: Clotrimazole 1% Cream 15 GM TUBE TOP SCH (22:55)
[2021-11-23] MEDS: Vancomycin HCl 750 MG in Sodium Chloride 0.9% 250 ML 250 ML IVPB SCH ×2 (01:52→12:36)
[2021-11-23] MEDS: Sodium Chloride 0.9% 1,000 ML IV SCH ×3 (01:53→11:28)
[2021-11-23] MEDS: Apixaban 5 MG TAB PO SCH ×2 (09:11→21:38)
[2021-11-23] MEDS: Carvedilol 12.5 MG TAB PO SCH ×2 (09:12→18:21)
[2021-11-23] MEDS: Amiodarone 200 MG TAB PO SCH ×2 (09:12→21:38)
[2021-11-23] MEDS: Dexamethasone 1 MG TAB PO SCH (09:12)
[2021-11-23] MEDS: Clotrimazole 1% Cream 15 GM TUBE TOP SCH ×2 (09:13→21:39)
[2021-11-23] MEDS ORDERED: Levothyroxine Sodium 125 MCG TAB PO SCH (10:15)
[2021-11-23] MEDS: Cefepime 1 GM in Sodium Chloride 0.9% 100 ML IVPB SCH (11:28)
[2021-11-23] MEDS: HumaLOG 300 UNITS/3 ML VIAL SC PRN ×2 (12:36→18:23)
[2021-11-23] MEDS ORDERED: Cefepime 2 GM in Sodium Chloride 0.9% 100 ML IVPB SCH (16:45)
[2021-11-23] MEDS: Micafungin 100 MG in Sodium Chloride 0.9% 100 ML IVPB SCH (18:21)
[2021-11-23] MEDS: Cefepime 2 GM in Sodium Chloride 0.9% 100 ML IVPB SCH (23:43)
[2021-11-24] MEDS: Sodium Chloride 0.9% 1,000 ML IV SCH ×2 (01:40→13:30)
[2021-11-24] MEDS: Vancomycin HCl 750 MG in Sodium Chloride 0.9% 250 ML 250 ML IVPB SCH ×2 (01:40→13:29)
[2021-11-24] MEDS ORDERED: Levothyroxine Sodium 125 MCG TAB PO SCH (06:00)
[2021-11-24] MEDS: Clotrimazole 1% Cream 15 GM TUBE TOP SCH ×2 (09:51→20:55)
[2021-11-24] MEDS: Carvedilol 12.5 MG TAB PO SCH ×2 (09:51→16:50)
[2021-11-24] MEDS: Amiodarone 200 MG TAB PO SCH ×2 (09:51→20:54)
[2021-11-24] MEDS: Dexamethasone 1 MG TAB PO SCH (09:51)
[2021-11-24] MEDS: Apixaban 5 MG TAB PO SCH ×2 (09:51→20:54)
[2021-11-24] MEDS: Cefepime 2 GM in Sodium Chloride 0.9% 100 ML IVPB SCH (09:54)
[2021-11-24] MEDS: Micafungin 100 MG in Sodium Chloride 0.9% 100 ML IVPB SCH (16:47)
[2021-11-24] MEDS: HumaLOG 300 UNITS/3 ML VIAL SC PRN (16:50)
[2021-11-24] MEDS: Amoxicillin/Potassium Clav 875 MG TAB PO SCH (20:54)
[2021-11-25 04:25] LABS: Hemoglobin 11.3 g/dL (13.5-17.5); Mean Corpuscular HGB CONC 33.7 g/dL (32.0-36.0); Mean Corpuscular Hemoglobin 29.1 pg (27.0-33.0); Mean Corpuscular Volume 86.3 fl (81.2-95.1); Mean Platelet Volume 8.6 fl (7.4-10.4); Platelet Count 205 10x3/uL (150-450); RBC Distribution Width 15.9 % (11.5-14.5); Red Blood Cell (RBC) Count 3.88 10x6/uL (4.32-5.72); White Blood Cell (WBC) Count 2.3 10x3/uL (3.5-10.5)
[2021-11-25 04:39] LABS: ALT (SGPT) 12 U/L (8-55); AST (SGOT) 9 U/L (5-34); Albumin 3.7 g/dL (3.4-4.8); Alkaline Phosphatase 66 U/L (40-110); Anion Gap 17 mmol/L (10-20); BUN (Urea Nitrogen) 18 mg/dL (8.4-25.7); Bilirubin, Direct 0.2 mg/dL (0.1-0.3); Bilirubin, Total 0.8 mg/dL (0.2-1.2); Calc. Creatinine Clearance 88 mL/min (70-130); Calcium 9.5 mg/dL (7.8-10.44); Carbon Dioxide 20 mmol/L (23-31); Chloride 105 mmol/L (98-107); Cholesterol 244 mg/dl (< 200 Desired); Estimated GFR 65; Glucose 130 mg/dL (80-115); HDL Cholesterol 41 mg/dL (>60 Neg Risk); LDL Cholesterol, Calculated 152 mg/dL; Magnesium 2.2 mg/dL (1.6-2.6); Potassium 4.2 mmol/L (3.5-5.1); Protein, Total 6.4 g/dL (5.8-8.1); Sodium 138 mmol/L (136-145); Triglycerides 254 mg/dL (Less than 150)
[2021-11-25 05:01] LABS: CRP (Inflammatory) 0.52 mg/dL (= or < 0.5)
[2021-11-25] MEDS: Levothyroxine Sodium 125 MCG TAB PO SCH (05:17)
[2021-11-25 05:49] LABS: MDiff Complete? YES
[2021-11-25 07:10] LABS: Band 12 % (5-11); Lymphocytes 33 % (21-51); Metamyelocyte 2 % (0-0); Monocytes 10 % (0-10); Neutrophil 43 % (42-75)
[2021-11-25 07:11] LABS: Platelet Morphology Comment Appears Adequate; RBC Morphology Normal
[2021-11-25] MEDS: Apixaban 5 MG TAB PO SCH ×2 (09:10→20:53)
[2021-11-25] MEDS: Dexamethasone 1 MG TAB PO SCH (09:10)
[2021-11-25] MEDS: Amiodarone 200 MG TAB PO SCH ×2 (09:10→20:53)
[2021-11-25] MEDS: Amoxicillin/Potassium Clav 875 MG TAB PO SCH ×2 (09:10→20:53)
[2021-11-25] MEDS: Carvedilol 12.5 MG TAB PO SCH ×2 (09:10→17:20)
[2021-11-25] MEDS: Clotrimazole 1% Cream 15 GM TUBE TOP SCH ×2 (09:11→20:53)
[2021-11-25 09:14] LABS: Fungus Stain Final report (.)
[2021-11-25] MEDS: Micafungin 100 MG in Sodium Chloride 0.9% 100 ML IVPB SCH (17:20)
[2021-11-25] MEDS: Doxycycline 100 MG CAP PO SCH (20:53)
[2021-11-26 04:56] LABS: Hemoglobin 11.6 g/dL (13.5-17.5); Mean Corpuscular HGB CONC 33.7 g/dL (32.0-36.0); Mean Corpuscular Hemoglobin 29.4 pg (27.0-33.0); Mean Corpuscular Volume 87.3 fl (81.2-95.1); Mean Platelet Volume 11.2 fl (7.4-10.4); Platelet Count 164 10x3/uL (150-450); RBC Distribution Width 16.5 % (11.5-14.5); Red Blood Cell (RBC) Count 3.94 10x6/uL (4.32-5.72); White Blood Cell (WBC) Count 2.3 10x3/uL (3.5-10.5)
[2021-11-26] MEDS: Levothyroxine Sodium 125 MCG TAB PO SCH (05:38)
[2021-11-26 06:42] LABS: Anion Gap 17 mmol/L (10-20); BUN (Urea Nitrogen) 19 mg/dL (8.4-25.7); Calc. Creatinine Clearance 90 mL/min (70-130); Calcium 9.8 mg/dL (7.8-10.44); Carbon Dioxide 22 mmol/L (23-31); Chloride 103 mmol/L (98-107); Estimated GFR 67; Glucose 144 mg/dL (80-115); Magnesium 2.2 mg/dL (1.6-2.6); Potassium 4.2 mmol/L (3.5-5.1); Sodium 138 mmol/L (136-145)
[2021-11-26 07:33] LABS: MDiff Complete? YES; Platelet Morphology Comment Appears Adequate
[2021-11-26 07:37] LABS: Band 8 % (5-11); Eosinophils 2 % (0-10); Lymphocytes 32 % (21-51); Metamyelocyte 2 % (0-0); Monocytes 8 % (0-10); Neutrophil 45 % (42-75); Nucleated RBC 1 % (0); Reactive Lymphocytes 3 % (0-10)
[2021-11-26 08:15] VITALS: BP 142/73; TEMP 97.1
[2021-11-26] MEDS: Carvedilol 12.5 MG TAB PO SCH (08:37)
[2021-11-26] MEDS: Doxycycline 100 MG CAP PO SCH (08:37)
[2021-11-26] MEDS: Amiodarone 200 MG TAB PO SCH (08:37)
[2021-11-26] MEDS: Apixaban 5 MG TAB PO SCH (08:37)
[2021-11-26] MEDS: Dexamethasone 1 MG TAB PO SCH (08:38)
[2021-11-26] MEDS: Clotrimazole 1% Cream 15 GM TUBE TOP SCH (08:38)
[2021-11-26] MEDS: Amoxicillin/Potassium Clav 875 MG TAB PO SCH (08:38)
== END 2021-11-26 11:45 | disposition home or self-care (01) | DRG 871 ==
LOC: CSHERS 10:28 → CSHTELE 15:53
PROVIDERS: ADMIT Internal Medicine; ATTEND Family Medicine
DX: A41.02 Sepsis due to Methicillin resistant Staphylococcus aureus (principal); L89.153 Pressure ulcer of sacral region, stage 3; C91.10 Chronic lymphocytic leukemia of B-cell type not having achieved remission; N17.9 Acute kidney failure, unspecified; D61.818 Other pancytopenia; L03.315 Cellulitis of perineum; L03.317 Cellulitis of buttock; D89.811 Chronic graft-versus-host disease; T86.09 Other complications of bone marrow transplant; Z16.21 Resistance to vancomycin; N18.9 Chronic kidney disease, unspecified; I48.0 Paroxysmal atrial fibrillation; Z20.822 Contact with and (suspected) exposure to COVID-19; Y83.8 Other surgical procedures as the cause of abnormal reaction of the patient, or of later complication, without mention of misadventure at the time of the procedure; E03.9 Hypothyroidism, unspecified; A41.81 Sepsis due to Enterococcus; I12.9 Hypertensive chronic kidney disease with stage 1 through stage 4 chronic kidney disease, or unspecified chronic kidney disease; E09.22 Drug or chemical induced diabetes mellitus with diabetic chronic kidney disease; B35.6 Tinea cruris; Z98.890 Other specified postprocedural states; Z88.8 Allergy status to other drugs, medicaments and biological substances; Z79.899 Other long term (current) drug therapy; Z79.01 Long term (current) use of anticoagulants
CPT/HCPCS: 36415; 36416; 71045; 80048; 80053; 80061; 80076; 80202; 81001; 83036; 83605; 83735; 85025; 86140; 87040; 87070; 87077; 87102; 87186; 87205; 87206; 93005; 93010; 96365; 96366; 96367; 97139; J0692; J1815; J2248; J3370; J3490; J7050; J8540; U0002

== ENCOUNTER 2021-12-09 09:54 | Inpatient (IN) | payer MEDICARE ==
[2021-12-09] MEDS ORDERED: Cefepime 2 GM VIAL ONE (10:32)
[2021-12-09 10:49] LABS: Hemoglobin 10.4 g/dL (13.5-17.5); Mean Corpuscular HGB CONC 33.5 g/dL (32.0-36.0); Mean Corpuscular Hemoglobin 29.6 pg (27.0-33.0); Mean Corpuscular Volume 88.3 fl (81.2-95.1); Mean Platelet Volume 9.8 fl (7.4-10.4); RBC Distribution Width 17.8 % (11.5-14.5); Red Blood Cell (RBC) Count 3.51 10x6/uL (4.32-5.72); White Blood Cell (WBC) Count 1.7 10x3/uL (3.5-10.5)
[2021-12-09 10:51] LABS: Platelet Count 100 10x3/uL (150-450)
[2021-12-09 10:51] LABS: Prothrombin Time 10.9 sec (9.5-12.1)
[2021-12-09 10:58] LABS: ALT (SGPT) 15 U/L (8-55); AST (SGOT) 8 U/L (5-34); Albumin 3.6 g/dL (3.4-4.8); Alkaline Phosphatase 61 U/L (40-110); Anion Gap 17 mmol/L (10-20); BUN (Urea Nitrogen) 29 mg/dL (8.4-25.7); CK (CPK) 21 U/L (30-200); Calc. Creatinine Clearance 0 mL/min (70-130); Carbon Dioxide 21 mmol/L (23-31); Chloride 103 mmol/L (98-107); Estimated GFR 36; Globulin 3.2 g/dL (2.4-3.5); Glucose 122 mg/dL (80-115); Potassium 3.4 mmol/L (3.5-5.1); Protein, Total 6.8 g/dL (5.8-8.1); Sodium 138 mmol/L (136-145)
[2021-12-09 11:09] LABS: SARS-CoV-2 NAA Rapid Test Not Detected (NotDetected)
[2021-12-09 11:44] LABS: Bilirubin Neg (Negative); Blood, Urine Negative (Negative); Clarity Clear (Clear); Glucose, Urine (Dipstick) Normal (Negative); Ketone, Urine Negative (Negative); Leukocyte Negative (Negative); Nitrite Negative (Negative); Protein, Urine (Dipstick) 100 mg/dl (Neg-Trace); Urobilinogen Normal mg/dL (Less than 2)
[2021-12-09 11:57] LABS: Band 6 % (5-11); Eosinophils 3 % (0-10); Lymphocytes 47 % (21-51); Metamyelocyte 1 % (0-0); Monocytes 13 % (0-10); Nucleated RBC 1 % (0); Reactive Lymphocytes 5 % (0-10)
[2021-12-09 11:58] LABS: Neutrophil 25 % (42-75)
[2021-12-09 12:00] LABS: Anisocytosis SLIGHT = 6-15 cells (100X) (0-5/hpf); Macrocytosis SLIGHT = 6-15 cells (100X) (0-5/hpf); Microcytosis SLIGHT = 6-15 cells (100X) (0-5/hpf); Ovalocytes SLIGHT = 2-5 cells (100X) (0-1/hpf); Polychromasia SLIGHT = 2-3 cells (100X) (0-2/hpf)
[2021-12-09 12:01] LABS: Platelet Clumps SLIGHT; Platelet Morphology Comment Appears Decreased; Toxic Granulation SLIGHT
[2021-12-09 12:02] LABS: MDiff Complete? YES
[2021-12-09 12:04] LABS: Bacteria/HPF None Seen HPF (None Seen); RBC/HPF None Seen HPF (0-3); Squamous Epithelial 0-3 HPF (0-3); WBC/HPF None Seen HPF (0-3)
[2021-12-09] MEDS ORDERED: Micafungin 100 MG in Sodium Chloride 0.9% 100 ML IVPB SCH (13:00)
[2021-12-09 13:31] LABS: Lactic Acid 1.5 mmol/L (0.5-2.2)
[2021-12-09] MEDS ORDERED: Dextrose 50% Abboject 50 ML SYRINGE SLOW IVP PRN (14:17)
[2021-12-09] MEDS ORDERED: HumaLOG 300 UNITS/3 ML VIAL SC PRN (14:17)
[2021-12-09] MEDS ORDERED: Dextrose 5% in Water 1,000 ML IV PRN (14:17)
[2021-12-09] MEDS ORDERED: Ondansetron PF 4 MG/2 ML Vial IVP PRN (14:19)
[2021-12-09] MEDS ORDERED: Senokot S 8.6-50 MG TAB PO PRN (14:19)
[2021-12-09] MEDS ORDERED: Ondansetron ODT 4 MG TAB PO PRN (14:19)
[2021-12-09] MEDS ORDERED: Potassium Chloride 20 MEQ TAB PO SCH (14:45)
[2021-12-09 14:55] VITALS: BMI 32.5
[2021-12-09] MEDS: Acetaminophen 325 MG TAB PO PRN (15:17)
[2021-12-09] MEDS: Sodium Chloride 0.9% 1,000 ML IV SCH (15:17)
[2021-12-09] MEDS ORDERED: Carvedilol 12.5 MG TAB PO SCH (17:00)
[2021-12-09] MEDS: Carvedilol 12.5 MG TAB PO SCH (17:59)
[2021-12-09] MEDS: Apixaban 5 MG TAB PO SCH (21:19)
[2021-12-09] MEDS: Amiodarone 200 MG TAB PO SCH (21:19)
[2021-12-09] MEDS: Clotrimazole 1% Cream 15 GM TUBE TOP SCH (21:20)
[2021-12-09] MEDS: Cefepime 1 GM in Sodium Chloride 0.9% 100 ML IVPB SCH (23:07)
[2021-12-10] MEDS: Sodium Chloride 0.9% 1,000 ML IV SCH ×2 (01:28→09:44)
[2021-12-10 05:24] LABS: Hemoglobin 7.9 g/dL (13.5-17.5); Mean Corpuscular HGB CONC 33.1 g/dL (32.0-36.0); Mean Corpuscular Hemoglobin 29.8 pg (27.0-33.0); Mean Corpuscular Volume 90.2 fl (81.2-95.1); Mean Platelet Volume 9.4 fl (7.4-10.4); Platelet Count 53 10x3/uL (150-450); RBC Distribution Width 18.3 % (11.5-14.5); Red Blood Cell (RBC) Count 2.65 10x6/uL (4.32-5.72); White Blood Cell (WBC) Count 1.2 10x3/uL (3.5-10.5)
[2021-12-10] MEDS: Levothyroxine Sodium 125 MCG TAB PO SCH (05:31)
[2021-12-10 05:35] LABS: Anion Gap 13 mmol/L (10-20); BUN (Urea Nitrogen) 25 mg/dL (8.4-25.7); Calc. Creatinine Clearance 55 mL/min (70-130); Calcium 8.6 mg/dL (7.8-10.44); Carbon Dioxide 21 mmol/L (23-31); Chloride 109 mmol/L (98-107); Estimated GFR 40; Glucose 87 mg/dL (80-115); Potassium 3.7 mmol/L (3.5-5.1); Sodium 139 mmol/L (136-145)
[2021-12-10 06:04] LABS: MDiff Complete? YES; Platelet Morphology Comment Appears Decreased
[2021-12-10 06:28] LABS: Band 11 % (5-11); Eosinophils 5 % (0-10); Lymphocytes 31 % (21-51); Metamyelocyte 4 % (0-0); Monocytes 20 % (0-10); Neutrophil 29 % (42-75)
[2021-12-10] MEDS: Amiodarone 200 MG TAB PO SCH ×2 (09:41→20:09)
[2021-12-10] MEDS: Cholecalciferol 1,000 UNITS (25 MCG) TAB PO SCH (09:41)
[2021-12-10] MEDS: valACYclovir 500 MG TAB PO SCH (09:41)
[2021-12-10] MEDS: Apixaban 5 MG TAB PO SCH (09:41)
[2021-12-10] MEDS: Carvedilol 12.5 MG TAB PO SCH ×2 (09:41→16:28)
[2021-12-10] MEDS: Dexamethasone 1 MG TAB PO SCH (09:42)
[2021-12-10] MEDS: Clotrimazole 1% Cream 15 GM TUBE TOP SCH ×2 (09:44→20:10)
[2021-12-10] MEDS: Cefepime 1 GM in Sodium Chloride 0.9% 100 ML IVPB SCH ×2 (11:00→22:44)
[2021-12-10] MEDS ORDERED: Vancomycin HCl 1 GM in Sodium Chloride 0.9% 250 ML 250 ML IVPB SCH (12:00)
[2021-12-10] MEDS: Saccharomyces boulardii 250 MG CAP PO SCH (12:25)
[2021-12-10] MEDS: Acetaminophen 325 MG TAB PO PRN (12:25)
[2021-12-10] MEDS: HumaLOG 300 UNITS/3 ML VIAL SC PRN (16:34)
[2021-12-11 04:22] LABS: Hemoglobin 7.8 g/dL (13.5-17.5); Mean Corpuscular HGB CONC 33.6 g/dL (32.0-36.0); Mean Corpuscular Hemoglobin 29.9 pg (27.0-33.0); Mean Corpuscular Volume 88.9 fl (81.2-95.1); Mean Platelet Volume 11.1 fl (7.4-10.4); Platelet Count 75 10x3/uL (150-450); RBC Distribution Width 17.6 % (11.5-14.5); Red Blood Cell (RBC) Count 2.61 10x6/uL (4.32-5.72); White Blood Cell (WBC) Count 0.7 10x3/uL (3.5-10.5)
[2021-12-11 04:28] LABS: Anion Gap 15 mmol/L (10-20); BUN (Urea Nitrogen) 19 mg/dL (8.4-25.7); Calc. Creatinine Clearance 71 mL/min (70-130); Carbon Dioxide 18 mmol/L (23-31); Chloride 109 mmol/L (98-107); Estimated GFR 55; Glucose 136 mg/dL (80-115); Potassium 4.2 mmol/L (3.5-5.1); Sodium 138 mmol/L (136-145)
[2021-12-11 05:59] LABS: MDiff Complete? YES; Platelet Morphology Comment Appears Decreased
[2021-12-11 06:03] LABS: Reflex for Review?? YES
[2021-12-11] MEDS: Levothyroxine Sodium 125 MCG TAB PO SCH (06:04)
[2021-12-11 06:10] LABS: Band 4 % (5-11); Eosinophils 3 % (0-10); Lymphocytes 32 % (21-51); Metamyelocyte 5 % (0-0); Monocytes 15 % (0-10); Neutrophil 39 % (42-75)
[2021-12-11] MEDS: HumaLOG 300 UNITS/3 ML VIAL SC PRN ×4 (06:37→21:05)
[2021-12-11] MEDS: Dexamethasone 1 MG TAB PO SCH (09:11)
[2021-12-11] MEDS: Carvedilol 12.5 MG TAB PO SCH ×2 (09:11→17:49)
[2021-12-11] MEDS: Cholecalciferol 1,000 UNITS (25 MCG) TAB PO SCH (09:12)
[2021-12-11] MEDS: valACYclovir 500 MG TAB PO SCH (09:12)
[2021-12-11] MEDS: Amiodarone 200 MG TAB PO SCH ×2 (09:13→20:10)
[2021-12-11] MEDS: Clotrimazole 1% Cream 15 GM TUBE TOP SCH ×2 (09:13→20:11)
[2021-12-11] MEDS: Cefepime 1 GM in Sodium Chloride 0.9% 100 ML IVPB SCH ×2 (11:24→23:21)
[2021-12-11] MEDS: Saccharomyces boulardii 250 MG CAP PO SCH (11:24)
[2021-12-11] MEDS ORDERED: HYDROcodone/Acetaminophen 5/325 mg Tablet PO PRN (14:35)
[2021-12-12] MEDS: Levothyroxine Sodium 125 MCG TAB PO SCH (05:19)
[2021-12-12 05:47] LABS: Hemoglobin 8.4 g/dL (13.5-17.5); Mean Corpuscular HGB CONC 32.4 g/dL (32.0-36.0); Mean Corpuscular Hemoglobin 29.5 pg (27.0-33.0); Mean Corpuscular Volume 90.9 fl (81.2-95.1); Mean Platelet Volume 10.4 fl (7.4-10.4); Platelet Count 102 10x3/uL (150-450); RBC Distribution Width 17.2 % (11.5-14.5); Red Blood Cell (RBC) Count 2.85 10x6/uL (4.32-5.72); White Blood Cell (WBC) Count 0.8 10x3/uL (3.5-10.5)
[2021-12-12 05:49] LABS: Anion Gap 14 mmol/L (10-20); BUN (Urea Nitrogen) 19 mg/dL (8.4-25.7); Calc. Creatinine Clearance 74 mL/min (70-130); Calcium 9.4 mg/dL (7.8-10.44); Carbon Dioxide 22 mmol/L (23-31); Chloride 109 mmol/L (98-107); Estimated GFR 58; Glucose 133 mg/dL (80-115); Potassium 4.5 mmol/L (3.5-5.1); Sodium 140 mmol/L (136-145)
[2021-12-12 06:25] LABS: MDiff Complete? YES; Platelet Morphology Comment Appears Decreased
[2021-12-12 06:34] LABS: Eosinophils 1 % (0-10); Lymphocytes 33 % (21-51); Metamyelocyte 6 % (0-0); Monocytes 11 % (0-10); Neutrophil 48 % (42-75)
[2021-12-12] MEDS: Saccharomyces boulardii 250 MG CAP PO SCH (08:53)
[2021-12-12] MEDS: Dexamethasone 1 MG TAB PO SCH (08:53)
[2021-12-12] MEDS: Amiodarone 200 MG TAB PO SCH ×2 (08:53→21:34)
[2021-12-12] MEDS: Carvedilol 12.5 MG TAB PO SCH ×2 (08:54→17:44)
[2021-12-12] MEDS: valACYclovir 500 MG TAB PO SCH (08:54)
[2021-12-12] MEDS: Cholecalciferol 1,000 UNITS (25 MCG) TAB PO SCH (08:54)
[2021-12-12] MEDS: Cefepime 1 GM in Sodium Chloride 0.9% 100 ML IVPB SCH ×2 (08:55→23:56)
[2021-12-12] MEDS: Clotrimazole 1% Cream 15 GM TUBE TOP SCH ×2 (08:55→21:45)
[2021-12-12] MEDS: HumaLOG 300 UNITS/3 ML VIAL SC PRN (17:46)
[2021-12-12] MEDS: Apixaban 5 MG TAB PO SCH (21:35)
[2021-12-13] MEDS: Levothyroxine Sodium 125 MCG TAB PO SCH (06:23)
[2021-12-13 09:01] LABS: Mean Corpuscular HGB CONC 32.4 g/dL (32.0-36.0); Mean Corpuscular Hemoglobin 29.8 pg (27.0-33.0); Mean Platelet Volume 9.3 fl (7.4-10.4); Platelet Count 160 10x3/uL (150-450); RBC Distribution Width 17.2 % (11.5-14.5); Red Blood Cell (RBC) Count 3.36 10x6/uL (4.32-5.72); White Blood Cell (WBC) Count 1.7 10x3/uL (3.5-10.5)
[2021-12-13 09:10] LABS: MDiff Complete? YES; Manual Diff?? YES
[2021-12-13 09:16] LABS: Anion Gap 13 mmol/L (10-20); BUN (Urea Nitrogen) 23 mg/dL (8.4-25.7); Calc. Creatinine Clearance 71 mL/min (70-130); Calcium 9.9 mg/dL (7.8-10.44); Carbon Dioxide 25 mmol/L (23-31); Chloride 107 mmol/L (98-107); Estimated GFR 54; Glucose 114 mg/dL (80-115); Potassium 4.2 mmol/L (3.5-5.1); Sodium 141 mmol/L (136-145)
[2021-12-13 09:52] LABS: Band 5 % (5-11); Eosinophils 3 % (0-10); Lymphocytes 35 % (21-51); Monocytes 13 % (0-10); Myelocyte 3 % (0-0); Neutrophil 36 % (42-75); Nucleated RBC 2 % (0)
[2021-12-13 09:53] LABS: Anisocytosis SLIGHT = 6-15 cells (100X) (0-5/hpf); Platelet Morphology Comment Appears Adequate
[2021-12-13 09:54] LABS: Toxic Granulation SLIGHT
[2021-12-13 09:55] LABS: Hypochromia SLIGHT = 6-15 cells (100X) (0-5/hpf); Macrocytosis SLIGHT = 6-15 cells (100X) (0-5/hpf); Microcytosis SLIGHT = 6-15 cells (100X) (0-5/hpf); Polychromasia SLIGHT = 2-3 cells (100X) (0-2/hpf)
[2021-12-13] MEDS: Cefepime 1 GM in Sodium Chloride 0.9% 100 ML IVPB SCH (11:14)
[2021-12-13] MEDS: Apixaban 5 MG TAB PO SCH (11:17)
[2021-12-13] MEDS: Cholecalciferol 1,000 UNITS (25 MCG) TAB PO SCH (11:17)
[2021-12-13] MEDS: Saccharomyces boulardii 250 MG CAP PO SCH (11:17)
[2021-12-13] MEDS: Amiodarone 200 MG TAB PO SCH (11:18)
[2021-12-13] MEDS: valACYclovir 500 MG TAB PO SCH (11:18)
[2021-12-13] MEDS: Carvedilol 12.5 MG TAB PO SCH (11:18)
[2021-12-13] MEDS: Dexamethasone 1 MG TAB PO SCH (11:21)
[2021-12-13] MEDS: Clotrimazole 1% Cream 15 GM TUBE TOP SCH (11:22)
[2021-12-13 12:04] VITALS: BP 131/67; TEMP 97.8
[2021-12-13 23:36] LABS: CMV DNA-PCR Test Negative (Negative)
== END 2021-12-13 12:30 | disposition home or self-care (01) | DRG 871 ==
LOC: CSHERS 09:54 → CSHTELE 14:34
PROVIDERS: ADMIT Family Medicine; ATTEND Family Medicine
DX: A41.9 Sepsis, unspecified organism (principal); D61.811 Other drug-induced pancytopenia; R65.21 Severe sepsis with septic shock; Z94.81 Bone marrow transplant status; C91.10 Chronic lymphocytic leukemia of B-cell type not having achieved remission; N17.9 Acute kidney failure, unspecified; L02.31 Cutaneous abscess of buttock; D89.813 Graft-versus-host disease, unspecified; L03.317 Cellulitis of buttock; L03.315 Cellulitis of perineum; E03.9 Hypothyroidism, unspecified; N18.9 Chronic kidney disease, unspecified; L98.499 Non-pressure chronic ulcer of skin of other sites with unspecified severity; I48.0 Paroxysmal atrial fibrillation; Z20.822 Contact with and (suspected) exposure to COVID-19; E87.6 Hypokalemia; L89.159 Pressure ulcer of sacral region, unspecified stage; T50.995A Adverse effect of other drugs, medicaments and biological substances, initial encounter; I12.9 Hypertensive chronic kidney disease with stage 1 through stage 4 chronic kidney disease, or unspecified chronic kidney disease; E11.22 Type 2 diabetes mellitus with diabetic chronic kidney disease; R19.7 Diarrhea, unspecified; Z88.8 Allergy status to other drugs, medicaments and biological substances; Z79.51 Long term (current) use of inhaled steroids; Z79.899 Other long term (current) drug therapy
CPT/HCPCS: 36415; 36416; 71045; 74176; 80048; 80053; 81003; 81015; 82550; 83605; 85025; 85060; 85610; 85730; 87040; 87449; 87497; 93005; 94760; 96365; 96366; 96367; 97139; J0692; J1815; J2248; J3370; J3490; J7050; J8540

== ENCOUNTER 2021-12-25 11:53 | Inpatient (IN) | payer MEDICARE ==
[2021-12-25 12:38] LABS: Hemoglobin 10.6 g/dL (13.5-17.5); Mean Corpuscular HGB CONC 32.6 g/dL (32.0-36.0); Mean Corpuscular Hemoglobin 28.8 pg (27.0-33.0); Mean Corpuscular Volume 88.3 fl (81.2-95.1); Mean Platelet Volume 9.3 fl (7.4-10.4); Platelet Count 152 10x3/uL (150-450); RBC Distribution Width 17.1 % (11.5-14.5); Red Blood Cell (RBC) Count 3.68 10x6/uL (4.32-5.72); White Blood Cell (WBC) Count 3.4 10x3/uL (3.5-10.5)
[2021-12-25 12:39] LABS: MDiff Complete? YES
[2021-12-25 12:45] LABS: ALT (SGPT) 14 U/L (8-55); AST (SGOT) 20 U/L (5-34); Albumin 3.6 g/dL (3.4-4.8); Alkaline Phosphatase 70 U/L (40-110); Anion Gap 20 mmol/L (10-20); BUN (Urea Nitrogen) 38 mg/dL (8.4-25.7); Bilirubin, Total 1.5 mg/dL (0.2-1.2); Calc. Creatinine Clearance 0 mL/min (70-130); Calcium 9.3 mg/dL (7.8-10.44); Carbon Dioxide 18 mmol/L (23-31); Chloride 102 mmol/L (98-107); Estimated GFR 27; Globulin 2.4 g/dL (2.4-3.5); Glucose 158 mg/dL (80-115); Magnesium 2.1 mg/dL (1.6-2.6); Potassium 4.2 mmol/L (3.5-5.1); Sodium 136 mmol/L (136-145)
[2021-12-25 12:57] LABS: SARS-CoV-2 NAA Rapid Test Not Detected (NotDetected)
[2021-12-25 13:13] LABS: Eosinophils 1 % (0-10); Lymphocytes 11 % (21-51); Metamyelocyte 1 % (0-0); Monocytes 8 % (0-10)
[2021-12-25 13:14] LABS: Band 11 % (5-11); Neutrophil 68 % (42-75)
[2021-12-25 13:15] LABS: Anisocytosis SLIGHT = 6-15 cells (100X) (0-5/hpf)
[2021-12-25 13:16] LABS: Large Platelets SLIGHT; Platelet Morphology Comment Appears Adequate
[2021-12-25 13:17] LABS: Lipase Less than 4 U/L (8-78)
[2021-12-25 14:34] LABS: Bilirubin Neg (Negative); Blood, Urine 150 (Negative); Clarity Clear (Clear); Glucose, Urine (Dipstick) Normal (Negative); Ketone, Urine 5 mg/dL (Negative); Leukocyte 25 (Negative); Nitrite Negative (Negative); Protein, Urine (Dipstick) 100 mg/dl (Neg-Trace); Urobilinogen Normal mg/dL (Less than 2)
[2021-12-25 15:01] LABS: Bacteria/HPF None Seen HPF (None Seen); Squamous Epithelial 0-3 HPF (0-3); WBC/HPF None Seen HPF (0-3)
[2021-12-25] MEDS ORDERED: Cefepime 1 GM VIAL ONE (16:01)
[2021-12-25] MEDS ORDERED: HumaLOG 300 UNITS/3 ML VIAL SC PRN ×2 (17:02→21:00)
[2021-12-25] MEDS ORDERED: Ondansetron PF 4 MG/2 ML Vial IVP PRN (17:02)
[2021-12-25] MEDS ORDERED: Dextrose 50% Abboject 50 ML SYRINGE SLOW IVP PRN (17:02)
[2021-12-25] MEDS ORDERED: Acetaminophen 325 MG TAB PO PRN (17:02)
[2021-12-25] MEDS ORDERED: Dextrose 5% in Water 1,000 ML IV PRN (17:02)
[2021-12-25] MEDS: Sodium Chloride 0.9% 1,000 ML IV SCH (19:30)
[2021-12-25 20:03] VITALS: BMI 30.2
[2021-12-25] MEDS: Clotrimazole 1% Cream 15 GM TUBE TOP SCH (21:00)
[2021-12-25] MEDS ORDERED: Famotidine 20 MG TAB PO SCH (21:00)
[2021-12-25 21:29] LABS: Glucose 103 mg/dL (80-115)
[2021-12-25] MEDS: Apixaban 5 MG TAB PO SCH (22:30)
[2021-12-25] MEDS: Amiodarone 200 MG TAB PO SCH (22:30)
[2021-12-26] MEDS: Sodium Chloride 0.9% 1,000 ML IV SCH ×3 (02:00→20:22)
[2021-12-26 04:44] LABS: Actual Bicarbonate (HCO3v) 22 mEq/L (22-28); Base Excess -2.4 mEq/L (-2.0 to +3.0); Calcium, Ionized (venous) 1.17 mmol/L (1.16-1.32); Chloride (VBG) 104 mmol/L (98-106); Hemoglobin (Hb) 9.1 g/dL (12.6-17.4); Potassium (VBG) 3.99 mmol/L (3.70-5.30); Puncture Site Other Site; Sodium 133.9 mmol/L (133-146); pH (venous) 7.43 (7.32-7.43)
[2021-12-26 04:46] LABS: Hemoglobin 8.4 g/dL (13.5-17.5); Mean Corpuscular HGB CONC 32.8 g/dL (32.0-36.0); Mean Corpuscular Hemoglobin 29.1 pg (27.0-33.0); Mean Corpuscular Volume 88.6 fl (81.2-95.1); Mean Platelet Volume 9.1 fl (7.4-10.4); Platelet Count 110 10x3/uL (150-450); RBC Distribution Width 17.2 % (11.5-14.5); Red Blood Cell (RBC) Count 2.89 10x6/uL (4.32-5.72); White Blood Cell (WBC) Count 2.3 10x3/uL (3.5-10.5)
[2021-12-26] MEDS: Cefepime 1 GM in Sodium Chloride 0.9% 100 ML IVPB SCH ×2 (04:48→17:27)
[2021-12-26 05:00] LABS: ALT (SGPT) 10 U/L (8-55); AST (SGOT) 11 U/L (5-34); Alkaline Phosphatase 55 U/L (40-110); Anion Gap 15 mmol/L (10-20); BUN (Urea Nitrogen) 32 mg/dL (8.4-25.7); Bilirubin, Direct 0.3 mg/dL (0.1-0.3); Bilirubin, Total 0.8 mg/dL (0.2-1.2); Calc. Creatinine Clearance 56 mL/min (70-130); Calcium 9.1 mg/dL (7.8-10.44); Carbon Dioxide 19 mmol/L (23-31); Cardiac Risk 8.1 (Less than 4.5); Chloride 106 mmol/L (98-107); Cholesterol 154 mg/dl (< 200 Desired); Estimated GFR 41; Glucose 91 mg/dL (80-115); HDL Cholesterol 19 mg/dL (>60 Neg Risk); LDL Cholesterol, Calculated 104 mg/dL; Magnesium 2.3 mg/dL (1.6-2.6); Protein, Total 5.8 g/dL (5.8-8.1); Sodium 136 mmol/L (136-145); Triglycerides 153 mg/dL (Less than 150)
[2021-12-26] MEDS: Levothyroxine Sodium 125 MCG TAB PO SCH (05:03)
[2021-12-26 06:56] LABS: MDiff Complete? YES; Platelet Morphology Comment Appears Decreased
[2021-12-26 07:19] LABS: Band 7 % (5-11); Lymphocytes 16 % (21-51); Metamyelocyte 2 % (0-0); Monocytes 14 % (0-10); Neutrophil 61 % (42-75)
[2021-12-26] MEDS ORDERED: Amiodarone 200 MG TAB PO SCH (09:00)
[2021-12-26 09:22] LABS: Glucose 91 mg/dL (80-115)
[2021-12-26] MEDS: Clotrimazole 1% Cream 15 GM TUBE TOP SCH ×2 (09:30→21:31)
[2021-12-26] MEDS: Dexamethasone 4 MG TAB PO SCH (11:13)
[2021-12-26] MEDS: valACYclovir 500 MG TAB PO SCH (11:13)
[2021-12-26] MEDS: Amiodarone 200 MG TAB PO SCH ×2 (11:13→21:30)
[2021-12-26] MEDS: Carvedilol 12.5 MG TAB PO SCH ×2 (11:13→17:39)
[2021-12-26] MEDS: Apixaban 5 MG TAB PO SCH ×2 (11:13→21:30)
[2021-12-26] MEDS: Saccharomyces boulardii 250 MG CAP PO SCH (11:14)
[2021-12-26] MEDS: HYDROcodone/Acetaminophen 5/325 mg Tablet PO PRN (11:44)
[2021-12-26 12:37] LABS: Hemoglobin A1c 5.2 % (4.0-6.0)
[2021-12-26] MEDS ORDERED: Lidocaine 2% 6 ML SYR TOP PRN ×2 (13:40→15:01)
[2021-12-26 13:51] LABS: Glucose 153 mg/dL (80-115)
[2021-12-26 17:28] LABS: Glucose 193 mg/dL (80-115)
[2021-12-26] MEDS ORDERED: Vancomycin HCl 1 GM in Sodium Chloride 0.9% 250 ML 250 ML IVPB SCH (18:00)
[2021-12-26] MEDS: VANCOMYCIN 1.25 GM/250 ML BAG 1.25 GM in Premix Bag 1 BAG IVPB SCH (19:48)
[2021-12-26] MEDS ORDERED: Lidocaine 2% 6 ML SYR TOP SCH (21:00)
[2021-12-26 21:24] LABS: Glucose 201 mg/dL (80-115)
[2021-12-26] MEDS: Senokot S 8.6-50 MG TAB PO SCH (21:30)
[2021-12-27] MEDS: Sodium Chloride 0.9% 1,000 ML IV SCH ×4 (01:00→18:19)
[2021-12-27 04:29] LABS: Hemoglobin 8.6 g/dL (13.5-17.5); Mean Corpuscular HGB CONC 31.3 g/dL (32.0-36.0); Mean Corpuscular Hemoglobin 28.5 pg (27.0-33.0); Mean Corpuscular Volume 91.1 fl (81.2-95.1); Mean Platelet Volume 9.9 fl (7.4-10.4); Platelet Count 119 10x3/uL (150-450); RBC Distribution Width 16.7 % (11.5-14.5); Red Blood Cell (RBC) Count 3.02 10x6/uL (4.32-5.72); White Blood Cell (WBC) Count 1.4 10x3/uL (3.5-10.5)
[2021-12-27 04:35] LABS: MDiff Complete? YES
[2021-12-27 04:39] LABS: Anion Gap 14 mmol/L (10-20); BUN (Urea Nitrogen) 27 mg/dL (8.4-25.7); Calc. Creatinine Clearance 74 mL/min (70-130); Calcium 9.1 mg/dL (7.8-10.44); Carbon Dioxide 18 mmol/L (23-31); Chloride 110 mmol/L (98-107); Estimated GFR 57; Glucose 126 mg/dL (80-115); Magnesium 2.3 mg/dL (1.6-2.6); Potassium 4.6 mmol/L (3.5-5.1); Sodium 137 mmol/L (136-145)
[2021-12-27] MEDS: Cefepime 1 GM in Sodium Chloride 0.9% 100 ML IVPB SCH ×2 (05:00→15:53)
[2021-12-27] MEDS: Levothyroxine Sodium 125 MCG TAB PO SCH (05:07)
[2021-12-27 06:43] LABS: Band 5 % (5-11); Lymphocytes 19 % (21-51); Monocytes 2 % (0-10); Neutrophil 74 % (42-75)
[2021-12-27 06:44] LABS: Anisocytosis SLIGHT = 6-15 cells (100X) (0-5/hpf); Hypochromia SLIGHT = 6-15 cells (100X) (0-5/hpf); Microcytosis SLIGHT = 6-15 cells (100X) (0-5/hpf)
[2021-12-27 06:45] LABS: Platelet Morphology Comment Appears Decreased
[2021-12-27 07:53] LABS: Glucose 174 mg/dL (80-115)
[2021-12-27] MEDS: Apixaban 5 MG TAB PO SCH ×2 (08:15→21:46)
[2021-12-27] MEDS: Clotrimazole 1% Cream 15 GM TUBE TOP SCH ×2 (08:15→21:45)
[2021-12-27] MEDS: Dexamethasone 4 MG TAB PO SCH (08:15)
[2021-12-27] MEDS: Carvedilol 12.5 MG TAB PO SCH ×2 (08:15→16:50)
[2021-12-27] MEDS: Amiodarone 200 MG TAB PO SCH ×2 (08:15→21:46)
[2021-12-27] MEDS: Senokot S 8.6-50 MG TAB PO SCH ×2 (08:22→21:46)
[2021-12-27] MEDS: valACYclovir 500 MG TAB PO SCH (08:22)
[2021-12-27] MEDS: Saccharomyces boulardii 250 MG CAP PO SCH (11:05)
[2021-12-27 11:56] LABS: Glucose 138 mg/dL (80-115)
[2021-12-27 18:33] LABS: Glucose 145 mg/dL (80-115)
[2021-12-27 18:35] LABS: Vancomycin, Trough 9.8 ug/mL
[2021-12-27] MEDS: VANCOMYCIN 1.25 GM/250 ML BAG 1.25 GM in Premix Bag 1 BAG IVPB SCH (18:47)
[2021-12-27] MEDS ORDERED: Vancomycin 1.5 GRAM/300 ML BAG 1.5 GM in Premix Bag 1 BAG IVPB SCH (19:30)
[2021-12-28] MEDS: Cefepime 1 GM in Sodium Chloride 0.9% 100 ML IVPB SCH ×2 (04:05→17:26)
[2021-12-28] MEDS: Levothyroxine Sodium 125 MCG TAB PO SCH (06:34)
[2021-12-28 06:50] LABS: Anion Gap 13 mmol/L (10-20); BUN (Urea Nitrogen) 26 mg/dL (8.4-25.7); Calc. Creatinine Clearance 79 mL/min (70-130); Carbon Dioxide 19 mmol/L (23-31); Chloride 111 mmol/L (98-107); Estimated GFR 62; Glucose 95 mg/dL (80-115); Magnesium 2.2 mg/dL (1.6-2.6); Sodium 138 mmol/L (136-145)
[2021-12-28 07:19] LABS: Hemoglobin 8.6 g/dL (13.5-17.5); MDiff Complete? YES; Mean Corpuscular HGB CONC 32.3 g/dL (32.0-36.0); Mean Corpuscular Hemoglobin 28.8 pg (27.0-33.0); Mean Platelet Volume 9.3 fl (7.4-10.4); Platelet Count 145 10x3/uL (150-450); RBC Distribution Width 16.4 % (11.5-14.5); Red Blood Cell (RBC) Count 2.99 10x6/uL (4.32-5.72); White Blood Cell (WBC) Count 1.4 10x3/uL (3.5-10.5)
[2021-12-28 08:24] LABS: Band 15 % (5-11); Lymphocytes 30 % (21-51); Monocytes 12 % (0-10); Neutrophil 43 % (42-75); Nucleated RBC 1 % (0)
[2021-12-28 08:29] LABS: Ovalocytes SLIGHT = 2-5 cells (100X) (0-1/hpf)
[2021-12-28 08:30] LABS: Platelet Morphology Comment Appears Adequate
[2021-12-28] MEDS: Carvedilol 12.5 MG TAB PO SCH ×2 (08:57→17:27)
[2021-12-28] MEDS: Dexamethasone 4 MG TAB PO SCH (08:57)
[2021-12-28] MEDS: valACYclovir 500 MG TAB PO SCH (08:57)
[2021-12-28] MEDS: Amiodarone 200 MG TAB PO SCH ×2 (08:57→22:27)
[2021-12-28] MEDS: Apixaban 5 MG TAB PO SCH ×2 (08:57→22:25)
[2021-12-28] MEDS: Clotrimazole 1% Cream 15 GM TUBE TOP SCH (08:58)
[2021-12-28] MEDS: Saccharomyces boulardii 250 MG CAP PO SCH (08:58)
[2021-12-28] MEDS: Senokot S 8.6-50 MG TAB PO SCH ×2 (08:58→22:27)
[2021-12-28] MEDS ORDERED: Lidocaine 1% w/Epinephrine 1:200K 30 ML VIAL FS SCH (12:00)
[2021-12-28] MEDS: Sodium Chloride 0.9% 1,000 ML IV SCH (12:37)
[2021-12-28] MEDS ORDERED: [UNRECOGNIZED DRUG - REMARK] IVPB PRN (17:41)
[2021-12-28] MEDS ORDERED: Vancomycin 1.5 GRAM/300 ML BAG 1.5 GM in Premix Bag 1 BAG IVPB SCH (18:00)
[2021-12-29] MEDS: Clotrimazole 1% Cream 15 GM TUBE TOP SCH ×2 (02:17→08:58)
[2021-12-29] MEDS: Cefepime 1 GM in Sodium Chloride 0.9% 100 ML IVPB SCH (04:28)
[2021-12-29] MEDS: Levothyroxine Sodium 125 MCG TAB PO SCH (05:20)
[2021-12-29 05:28] LABS: Hemoglobin 9.7 g/dL (13.5-17.5); Mean Corpuscular HGB CONC 33.8 g/dL (32.0-36.0); Mean Corpuscular Volume 85.9 fl (81.2-95.1); Mean Platelet Volume 9.1 fl (7.4-10.4); Platelet Count 176 10x3/uL (150-450); RBC Distribution Width 16.4 % (11.5-14.5); Red Blood Cell (RBC) Count 3.34 10x6/uL (4.32-5.72); White Blood Cell (WBC) Count 1.7 10x3/uL (3.5-10.5)
[2021-12-29 05:29] LABS: MDiff Complete? YES
[2021-12-29 05:45] LABS: Anion Gap 15 mmol/L (10-20); BUN (Urea Nitrogen) 27 mg/dL (8.4-25.7); Calc. Creatinine Clearance 76 mL/min (70-130); Calcium 9.8 mg/dL (7.8-10.44); Carbon Dioxide 20 mmol/L (23-31); Chloride 105 mmol/L (98-107); Estimated GFR 59; Glucose 101 mg/dL (80-115); Magnesium 2.1 mg/dL (1.6-2.6); Potassium 5.2 mmol/L (3.5-5.1); Sodium 135 mmol/L (136-145)
[2021-12-29 07:11] LABS: Band 1 % (5-11); Lymphocytes 29 % (21-51); Monocytes 9 % (0-10); Neutrophil 57 % (42-75); Reactive Lymphocytes 4 % (0-10)
[2021-12-29 07:13] LABS: Hypochromia SLIGHT = 6-15 cells (100X) (0-5/hpf); Microcytosis SLIGHT = 6-15 cells (100X) (0-5/hpf); Platelet Morphology Comment Appears Adequate
[2021-12-29 08:13] LABS: Glucose 101 mg/dL (80-115)
[2021-12-29] MEDS: Apixaban 5 MG TAB PO SCH (08:57)
[2021-12-29] MEDS: Amiodarone 200 MG TAB PO SCH (08:57)
[2021-12-29] MEDS: Dexamethasone 4 MG TAB PO SCH (08:57)
[2021-12-29] MEDS: Saccharomyces boulardii 250 MG CAP PO SCH (08:57)
[2021-12-29] MEDS: HYDROcodone/Acetaminophen 5/325 mg Tablet PO PRN (08:57)
[2021-12-29] MEDS: Carvedilol 12.5 MG TAB PO SCH (08:57)
[2021-12-29] MEDS: Senokot S 8.6-50 MG TAB PO SCH (08:58)
[2021-12-29] MEDS: valACYclovir 500 MG TAB PO SCH (09:00)
[2021-12-29] MEDS: Sodium Chloride 0.9% 1,000 ML IV SCH (09:55)
[2021-12-29 11:36] LABS: Glucose 90 mg/dL (80-115)
[2021-12-29 12:27] VITALS: BP 132/76; TEMP 97.9
== END 2021-12-29 15:39 | disposition home or self-care (01) | DRG 683 ==
LOC: SUATTDRO 11:53 → CSHERS 11:53 → CSHTELE 19:46
PROVIDERS: ADMIT Family Medicine; ATTEND Internal Medicine
PROC: 0W980ZZ Drainage of Chest Wall, Open Approach (ICD-10-PCS; principal; 2021-12-28)
DX: N17.9 Acute kidney failure, unspecified (principal); C91.10 Chronic lymphocytic leukemia of B-cell type not having achieved remission; L02.213 Cutaneous abscess of chest wall; N39.0 Urinary tract infection, site not specified; D84.821 Immunodeficiency due to drugs; Z94.81 Bone marrow transplant status; I48.91 Unspecified atrial fibrillation; D70.9 Neutropenia, unspecified; D63.1 Anemia in chronic kidney disease; E11.40 Type 2 diabetes mellitus with diabetic neuropathy, unspecified; D63.8 Anemia in other chronic diseases classified elsewhere; E03.9 Hypothyroidism, unspecified; L89.159 Pressure ulcer of sacral region, unspecified stage; R31.29 Other microscopic hematuria; Z20.822 Contact with and (suspected) exposure to COVID-19; R33.9 Retention of urine, unspecified; Z88.8 Allergy status to other drugs, medicaments and biological substances; Z79.899 Other long term (current) drug therapy; Z79.890 Hormone replacement therapy; Z98.890 Other specified postprocedural states; Z79.84 Long term (current) use of oral hypoglycemic drugs; Z92.21 Personal history of antineoplastic chemotherapy
CPT/HCPCS: 36415; 36416; 71045; 76770; 80048; 80053; 80061; 80076; 80202; 81003; 81015; 82570; 82805; 82947; 83036; 83605; 83690; 83735; 83880; 83930; 83935; 84300; 84443; 84484; 85025; 87040; 87070; 87077; 87086; 87186; 87205; 93005; 94760; 97139; J0692; J1815; J3370; J3490; J7050; J8540; U0002

== ENCOUNTER 2022-01-02 11:11 | Outpatient (CLI) | payer MEDICARE, OTHER | END 2022-01-02 11:12 | disposition home or self-care (01) | LOC: CSHWCC 11:11 | PROVIDERS: ATTEND Preventive Medicine Undersea and Hyperbaric Medicine | DX: L89.313 Pressure ulcer of right buttock, stage 3 (principal) | CPT/HCPCS: 97139; G0463; 99213 ==

== ENCOUNTER 2022-01-09 09:41 | Outpatient (CLI) | payer MEDICARE | END 2022-01-09 09:42 | disposition home or self-care (01) | LOC: CSHWCC 09:41 | PROVIDERS: ATTEND Preventive Medicine Undersea and Hyperbaric Medicine | DX: L89.313 Pressure ulcer of right buttock, stage 3 (principal); T81.89XD Other complications of procedures, not elsewhere classified, subsequent encounter; S51.802A Unspecified open wound of left forearm, initial encounter | CPT/HCPCS: 99213; G0463 ==

== ENCOUNTER 2022-03-01 09:07 | Inpatient (IN) | payer MEDICARE ==
[2022-03-01] MEDS ORDERED: NOREPINEPHRINE 8 MG/250 ML-D5W 250 ML ONE (09:22)
[2022-03-01] MEDS ORDERED: Hydrocortisone Sod Succ/PF 100 mg/2 ml Vial ONE (09:24)
[2022-03-01 09:27] LABS: Hemoglobin 12.7 g/dL (13.5-17.5); Mean Corpuscular HGB CONC 33.9 g/dL (32.0-36.0); Mean Corpuscular Hemoglobin 31.2 pg (27.0-33.0); Mean Corpuscular Volume 92.1 fl (81.2-95.1); Mean Platelet Volume 9.2 fl (7.4-10.4); Platelet Count 158 10x3/uL (150-450); RBC Distribution Width 17.6 % (11.5-14.5); Red Blood Cell (RBC) Count 4.07 10x6/uL (4.32-5.72)
[2022-03-01 09:37] LABS: PTT 28.4 sec (22.0-33.0); Prothrombin Time 10.6 sec (9.5-12.1)
[2022-03-01 09:41] LABS: ALT (SGPT) 13 U/L (8-55); AST (SGOT) 16 U/L (5-34); Alkaline Phosphatase 85 U/L (40-110); Anion Gap 18 mmol/L (10-20); BUN (Urea Nitrogen) 16 mg/dL (8.4-25.7); Bilirubin, Total 1.8 mg/dL (0.2-1.2); Calc. Creatinine Clearance 0 mL/min (70-130); Calcium 10.1 mg/dL (7.8-10.44); Carbon Dioxide 17 mmol/L (23-31); Chloride 106 mmol/L (98-107); Estimated GFR 29; Globulin 2.8 g/dL (2.4-3.5); Glucose 115 mg/dL (80-115); Potassium 3.4 mmol/L (3.5-5.1); Protein, Total 6.8 g/dL (5.8-8.1); Sodium 138 mmol/L (136-145)
[2022-03-01 09:50] LABS: MDiff Complete? YES
[2022-03-01 09:54] LABS: Lymphocytes 61 % (21-51); Metamyelocyte 1 % (0-0); Monocytes 10 % (0-10); Reactive Lymphocytes 2 % (0-10)
[2022-03-01 09:55] LABS: Band 1 % (5-11); Myelocyte 1 % (0-0); Neutrophil 24 % (42-75)
[2022-03-01 09:56] LABS: Platelet Morphology Comment Appears Adequate
[2022-03-01 09:58] LABS: Anisocytosis SLIGHT = 6-15 cells (100X) (0-5/hpf)
[2022-03-01] MEDS ORDERED: Piperacillin/Tazobactam 3.375 GM VIAL ONE (10:26)
[2022-03-01 11:16] LABS: SARS-CoV-2 NAA Rapid Test Not Detected (NotDetected)
[2022-03-01 12:56] LABS: Lactic Acid 2.9 mmol/L (0.5-2.2)
[2022-03-01 14:16] VITALS: BMI 30.1
[2022-03-01] MEDS ORDERED: Dextrose 50% Abboject 50 ML SYRINGE SLOW IVP PRN (15:12)
[2022-03-01] MEDS ORDERED: Acetaminophen 500 MG TAB PO PRN (15:12)
[2022-03-01] MEDS ORDERED: Dextrose 5% in Water 1,000 ML IV PRN (15:12)
[2022-03-01] MEDS ORDERED: Communication Order-Pharmacy FS PRN (15:12)
[2022-03-01] MEDS ORDERED: Ondansetron PF 4 MG/2 ML Vial IVP PRN (15:12)
[2022-03-01] MEDS ORDERED: Ondansetron ODT 4 MG TAB PO PRN (15:12)
[2022-03-01] MEDS ORDERED: NOREPINEPHRINE 8 MG/250 ML-D5W 250 ML IVPB SCH (15:12)
[2022-03-01] MEDS ORDERED: HumaLOG 300 UNITS/3 ML VIAL SC PRN ×2 (15:12)
[2022-03-01] MEDS ORDERED: Vancomycin HCl 1 GM in Premix Bag 1 BAG IVPB PRN (15:12)
[2022-03-01] MEDS: Hydrocortisone Sod Succ/PF 100 mg/2 ml Vial IVP SCH ×2 (16:20→21:37)
[2022-03-01] MEDS: Sodium Chloride 0.9% 1,000 ML IV SCH ×2 (16:20→23:42)
[2022-03-01] MEDS ORDERED: Vancomycin HCl 750 MG in Sodium Chloride 0.9% 250 ML 250 ML IVPB SCH (16:30)
[2022-03-01] MEDS: Cefepime 1 GM in Sodium Chloride 0.9% 100 ML IVPB SCH (17:48)
[2022-03-01 20:29] LABS: Lactic Acid 2.9 mmol/L (0.5-2.2)
[2022-03-01] MEDS: Famotidine/PF 20 mg/2ml Vial SLOW IVP SCH (21:21)
[2022-03-01] MEDS: metroNIDAZOLE 500 MG in Premix Bag 1 BAG IVPB SCH (21:21)
[2022-03-02] MEDS: Hydrocortisone Sod Succ/PF 100 mg/2 ml Vial IVP SCH (04:26)
[2022-03-02] MEDS: Cefepime 1 GM in Sodium Chloride 0.9% 100 ML IVPB SCH ×2 (04:30→17:02)
[2022-03-02] MEDS: metroNIDAZOLE 500 MG in Premix Bag 1 BAG IVPB SCH ×3 (05:50→21:57)
[2022-03-02 06:46] LABS: ALT (SGPT) 11 U/L (8-55); AST (SGOT) 11 U/L (5-34); Albumin 2.8 g/dL (3.4-4.8); Alkaline Phosphatase 58 U/L (40-110); Anion Gap 14 mmol/L (10-20); BUN (Urea Nitrogen) 25 mg/dL (8.4-25.7); Calc. Creatinine Clearance 59 mL/min (70-130); Calcium 8.2 mg/dL (7.8-10.44); Carbon Dioxide 17 mmol/L (23-31); Chloride 114 mmol/L (98-107); Estimated GFR 45; Globulin 2.3 g/dL (2.4-3.5); Glucose 172 mg/dL (80-115); Potassium 3.8 mmol/L (3.5-5.1); Protein, Total 5.1 g/dL (5.8-8.1); Sodium 141 mmol/L (136-145)
[2022-03-02] MEDS: Sodium Chloride 0.9% 1,000 ML IV SCH ×2 (08:57→11:10)
[2022-03-02] MEDS: valACYclovir 500 MG TAB PO SCH (08:59)
[2022-03-02 09:39] LABS: Mean Corpuscular HGB CONC 32.3 g/dL (32.0-36.0); Mean Corpuscular Hemoglobin 30.9 pg (27.0-33.0); Mean Platelet Volume 9.6 fl (7.4-10.4); Platelet Count 64 10x3/uL (150-450); RBC Distribution Width 17.2 % (11.5-14.5); Red Blood Cell (RBC) Count 2.72 10x6/uL (4.32-5.72)
[2022-03-02 10:57] LABS: Band 17 % (5-11); Lymphocytes 22 % (21-51); Metamyelocyte 1 % (0-0); Monocytes 9 % (0-10); Myelocyte 1 % (0-0); Neutrophil 50 % (42-75)
[2022-03-02 10:58] LABS: Anisocytosis SLIGHT = 6-15 cells (100X) (0-5/hpf); Ovalocytes SLIGHT = 2-5 cells (100X) (0-1/hpf)
[2022-03-02 10:59] LABS: Tear Drops SLIGHT = 2-5 cells (100X) (0-1/hpf)
[2022-03-02 11:00] LABS: Giant Platelets SLIGHT; Large Platelets SLIGHT; Platelet Morphology Comment Appears Decreased; Toxic Granulation SLIGHT
[2022-03-02 11:01] LABS: Dohle Bodies MODERATE; Hypersemented Neutrophil SLIGHT
[2022-03-02 11:05] LABS: MDiff Complete? YES
[2022-03-02 11:30] LABS: Hemoglobin 8.4 g/dL (13.5-17.5)
[2022-03-02 11:32] LABS: Mean Corpuscular Volume 95.6 fl (81.2-95.1)
[2022-03-02] MEDS: Saccharomyces boulardii 250 MG CAP PO SCH (13:23)
[2022-03-02] MEDS ORDERED: Vancomycin 1.5 GRAM/300 ML BAG 1.5 GM in Premix Bag 1 BAG IVPB SCH (14:00)
[2022-03-02] MEDS ORDERED: Hydrocortisone Sod Succ/PF 100 mg/2 ml Vial IVP SCH (21:00)
[2022-03-02] MEDS: Famotidine/PF 20 mg/2ml Vial SLOW IVP SCH (21:57)
[2022-03-03 05:41] LABS: Anion Gap 12 mmol/L (10-20); BUN (Urea Nitrogen) 18 mg/dL (8.4-25.7); Calc. Creatinine Clearance 81 mL/min (70-130); Calcium 8.6 mg/dL (7.8-10.44); Carbon Dioxide 19 mmol/L (23-31); Chloride 115 mmol/L (98-107); Estimated GFR 65; Glucose 108 mg/dL (80-115); Sodium 142 mmol/L (136-145)
[2022-03-03] MEDS: Cefepime 1 GM in Sodium Chloride 0.9% 100 ML IVPB SCH ×2 (07:29→17:32)
[2022-03-03] MEDS: Sodium Chloride 0.9% 1,000 ML IV SCH (08:53)
[2022-03-03] MEDS: metroNIDAZOLE 500 MG in Premix Bag 1 BAG IVPB SCH (08:53)
[2022-03-03] MEDS: Dexamethasone 1 MG TAB PO SCH (08:54)
[2022-03-03] MEDS: valACYclovir 500 MG TAB PO SCH (08:54)
[2022-03-03] MEDS: Saccharomyces boulardii 250 MG CAP PO SCH (12:02)
[2022-03-03 12:23] LABS: Vancomycin, Random 13.6 ug/mL (See Comment)
[2022-03-03] MEDS ORDERED: Vancomycin 1.5 GRAM/300 ML BAG 1.5 GM in Premix Bag 1 BAG IVPB SCH (13:00)
[2022-03-03] MEDS: metroNIDAZOLE 500 MG TAB PO SCH ×2 (17:32→21:49)
[2022-03-03] MEDS ORDERED: Famotidine/PF 20 mg/2ml Vial SLOW IVP SCH (21:00)
[2022-03-03] MEDS: Famotidine 20 MG TAB PO SCH (21:49)
[2022-03-04] MEDS: Cefepime 1 GM in Sodium Chloride 0.9% 100 ML IVPB SCH (05:16)
[2022-03-04] MEDS: metroNIDAZOLE 500 MG TAB PO SCH (06:59)
[2022-03-04 07:03] LABS: Hemoglobin 8.2 g/dL (13.5-17.5); Mean Corpuscular HGB CONC 33.2 g/dL (32.0-36.0); Mean Corpuscular Hemoglobin 30.5 pg (27.0-33.0); Mean Corpuscular Volume 91.8 fl (81.2-95.1); Mean Platelet Volume 9.2 fl (7.4-10.4); Platelet Count 74 10x3/uL (150-450); RBC Distribution Width 16.2 % (11.5-14.5); Red Blood Cell (RBC) Count 2.69 10x6/uL (4.32-5.72); White Blood Cell (WBC) Count 0.8 10x3/uL (3.5-10.5)
[2022-03-04 07:36] LABS: Anion Gap 11 mmol/L (10-20); BUN (Urea Nitrogen) 10 mg/dL (8.4-25.7); Calc. Creatinine Clearance 81 mL/min (70-130); Calcium 8.7 mg/dL (7.8-10.44); Carbon Dioxide 21 mmol/L (23-31); Chloride 113 mmol/L (98-107); Estimated GFR 65; Glucose 113 mg/dL (80-115); Potassium 3.8 mmol/L (3.5-5.1); Sodium 141 mmol/L (136-145)
[2022-03-04 08:04] LABS: MDiff Complete? YES
[2022-03-04 08:10] LABS: Eosinophils 8 % (0-10); Lymphocytes 48 % (21-51); Monocytes 10 % (0-10); Neutrophil 32 % (42-75)
[2022-03-04 08:18] LABS: Anisocytosis SLIGHT = 6-15 cells (100X) (0-5/hpf)
[2022-03-04 08:19] LABS: Ovalocytes SLIGHT = 2-5 cells (100X) (0-1/hpf); Platelet Morphology Comment Appears Decreased
[2022-03-04] MEDS: Famotidine 20 MG TAB PO SCH (09:51)
[2022-03-04] MEDS: valACYclovir 500 MG TAB PO SCH (09:51)
[2022-03-04] MEDS: Dexamethasone 1 MG TAB PO SCH (09:52)
[2022-03-04 11:51] VITALS: BP 152/82; TEMP 98.6
== END 2022-03-04 11:58 | disposition home or self-care (01) | DRG 871 ==
LOC: CSHERS 09:07 → CSHIMCU 13:40 → CSHTELE 17:17
PROVIDERS: ADMIT Family Medicine; ATTEND Family Medicine
PROC: 3E03329 Introduction of Other Anti-infective into Peripheral Vein, Percutaneous Approach (ICD-10-PCS; principal; 2022-03-01)
PROC: 3E033XZ Introduction of Vasopressor into Peripheral Vein, Percutaneous Approach (ICD-10-PCS; 2022-03-01)
DX: A41.9 Sepsis, unspecified organism (principal); R65.21 Severe sepsis with septic shock; N17.9 Acute kidney failure, unspecified; C91.10 Chronic lymphocytic leukemia of B-cell type not having achieved remission; E27.40 Unspecified adrenocortical insufficiency; Z94.81 Bone marrow transplant status; I48.20 Chronic atrial fibrillation, unspecified; Z20.822 Contact with and (suspected) exposure to COVID-19; E87.6 Hypokalemia; E03.9 Hypothyroidism, unspecified; N18.30 Chronic kidney disease, stage 3 unspecified; I12.9 Hypertensive chronic kidney disease with stage 1 through stage 4 chronic kidney disease, or unspecified chronic kidney disease; K60.3 Anal fistula; E11.22 Type 2 diabetes mellitus with diabetic chronic kidney disease; E11.42 Type 2 diabetes mellitus with diabetic polyneuropathy; Z92.21 Personal history of antineoplastic chemotherapy; Z88.8 Allergy status to other drugs, medicaments and biological substances; Z79.899 Other long term (current) drug therapy; Z79.890 Hormone replacement therapy; Z79.84 Long term (current) use of oral hypoglycemic drugs; Z79.01 Long term (current) use of anticoagulants
CPT/HCPCS: 36415; 36416; 71045; 74176; 80048; 80053; 80202; 83605; 84145; 85025; 85610; 85730; 87040; 93005; 94760; 96361; 96365; 96366; 96368; 96375; J0692; J1720; J1815; J2543; J3370; J3490; J7050; J8540; S0028

== ENCOUNTER 2025-04-02 12:36 | Inpatient (IN) | payer MEDICARE ==
[2025-04-02 14:15] LABS: Hematocrit 37.0 % (38.8-50.0); Hemoglobin 11.9 g/dL (13.5-17.5); Mean Corpuscular Hemoglobin 24.5 pg (27.0-33.0); Mean Corpuscular Volume 76.3 fL (81.2-95.1); Platelet Count 151 10x3/uL (150-450); Red Blood Cell (RBC) Count 4.85 10x6/uL (4.32-5.72); White Blood Cell (WBC) Count 2.95 10x3/uL (3.5-10.5)
[2025-04-02 14:25] LABS: INR-International Normal Ratio 1.1; PTT 33.3 sec (22.0-33.0); Prothrombin Time 12.4 sec (9.5-12.1)
[2025-04-02 14:27] LABS: ALT (SGPT) 7 U/L (Less than 45); AST (SGOT) 25 U/L (11-34); Albumin 3.1 g/dL (3.1-4.5); Alkaline Phosphatase 80 U/L (40-110); Anion Gap 14 mmol/L (10-20); BUN (Urea Nitrogen) 29 mg/dL (8.4-25.7); Bilirubin, Total 0.9 mg/dL (0.3-1.2); Calc. Creatinine Clearance 0 mL/min (70-130); Calcium 9.6 mg/dL (7.8-10.44); Carbon Dioxide 19 mmol/L (23-31); Chloride 107 mmol/L (98-107); Globulin 5.2 g/dL (2.4-3.5); Glucose 105 mg/dL (83-110); Potassium 3.8 mmol/L (3.5-5.1); Sodium 136 mmol/L (136-145)
[2025-04-02 14:33] LABS: MDiff Complete? YES
[2025-04-02 14:34] LABS: Ovalocytes SLIGHT = 2-5 cells (100X) (0-1/hpf); Platelet Adequacy Comment Platelets Normal
[2025-04-02] MEDS ORDERED: Cefepime 2 GM VIAL ONE (14:45)
[2025-04-02 16:33] LABS: Glucose, Urine (Dipstick) 250 mg/dL (Negative); Leukocyte Negative (Negative); Protein, Urine (Dipstick) 100 mg/dl (Neg-Trace); Specific Gravity, Urine 1.010 (1.005-1.030)
[2025-04-02 17:01] LABS: CAUTI Indications for Culture Alt mental st,lethar; WBC/HPF 0-3 HPF (0-3)
[2025-04-02 17:02] LABS: Mucous/LPF 2+ LPF (<2+)
[2025-04-02 17:03] LABS: Bacteria/HPF 2+ HPF (None Seen); Urine Culture Reflex No No
[2025-04-02] MEDS: Azithromycin 500 MG in Sodium Chloride 0.9% 250 ML 250 ML IVPB SCH (21:00)
[2025-04-02] MEDS ORDERED: Famotidine/PF 20 mg/2ml Vial ONE (21:40)
[2025-04-02] MEDS ORDERED: Azithromycin 500 MG VIAL ONE ×2 (21:40→21:43)
[2025-04-02] MEDS ORDERED: cefTRIAXone (ROCEPHIN) 2 GM VIAL ONE (21:40)
[2025-04-02] MEDS ORDERED: Dextrose 50% Abboject 50 ML SYRINGE SLOW IVP PRN (22:15)
[2025-04-02] MEDS ORDERED: Glucagon 1 MG/ML KIT IM PRN (22:15)
[2025-04-02] MEDS ORDERED: Acetaminophen 325 MG TAB ONE (22:19)
[2025-04-02] MEDS: Acetaminophen 325 MG TAB PO PRN (22:45)
[2025-04-02] MEDS: cefTRIAXone\\ROCEPHIN 2 GM in Sodium Chloride 0.9% 100 ML IVPB SCH (22:45)
[2025-04-03] MEDS: VANCOMYCIN 2 GRAM/400 ML BAG 2 GM in Premix 1 BAG IVPB SCH (01:19)
[2025-04-03 01:21] VITALS: BMI 29.1
[2025-04-03] MEDS: Famotidine 20 MG TAB PO SCH ×2 (01:32→21:53)
[2025-04-03] MEDS: Famotidine/PF 20 mg/2ml Vial SLOW IVP SCH ×2 (01:32→22:11)
[2025-04-03 05:50] LABS: Hematocrit 38.2 % (38.8-50.0); Hemoglobin 11.9 g/dL (13.5-17.5); Mean Corpuscular Hemoglobin 24.0 pg (27.0-33.0); Mean Corpuscular Volume 77.2 fL (81.2-95.1); Platelet Count 129 10x3/uL (150-450); Red Blood Cell (RBC) Count 4.95 10x6/uL (4.32-5.72); White Blood Cell (WBC) Count 3.48 10x3/uL (3.5-10.5)
[2025-04-03 05:52] LABS: MDiff Complete? YES; Microcytosis SLIGHT = 6-15 cells (100X) (0-5/hpf); Platelet Adequacy Comment Appears Decreased
[2025-04-03 06:01] LABS: ALT (SGPT) 8 U/L (Less than 45); AST (SGOT) 35 U/L (11-34); Albumin 2.9 g/dL (3.1-4.5); Alkaline Phosphatase 75 U/L (40-110); Anion Gap 13 mmol/L (10-20); BUN (Urea Nitrogen) 27 mg/dL (8.4-25.7); Bilirubin, Total 0.8 mg/dL (0.3-1.2); Calc. Creatinine Clearance 45 mL/min (70-130); Calcium 9.6 mg/dL (7.8-10.44); Carbon Dioxide 19 mmol/L (23-31); Chloride 108 mmol/L (98-107); Globulin 5.2 g/dL (2.4-3.5); Glucose 93 mg/dL (83-110); Potassium 4.2 mmol/L (3.5-5.1); Sodium 136 mmol/L (136-145)
[2025-04-03] MEDS: Hydrocortisone Sod Succ/PF 100 mg/2 ml Vial IVP SCH (18:12)
[2025-04-03] MEDS: Gabapentin 100 MG CAP PO SCH (21:52)
[2025-04-03] MEDS: valACYclovir 500 MG TAB PO SCH (21:52)
[2025-04-04] MEDS: Heparin 5,000 UNITS/ML VIAL SC SCH (20:25)
[2025-04-04] MEDS: Hydrocortisone Sod Succ/PF 100 mg/2 ml Vial IVP SCH (23:17)
[2025-04-05 08:54] LABS: Anion Gap 14 mmol/L (10-20); BUN (Urea Nitrogen) 29 mg/dL (8.4-25.7); Calc. Creatinine Clearance 54 mL/min (70-130); Calcium 10.0 mg/dL (7.8-10.44); Carbon Dioxide 21 mmol/L (23-31); Chloride 107 mmol/L (98-107); Glucose 106 mg/dL (83-110); Potassium 3.8 mmol/L (3.5-5.1); Sodium 138 mmol/L (136-145)
[2025-04-05 09:08] LABS: Hematocrit 37.7 % (38.8-50.0); Hemoglobin 11.8 g/dL (13.5-17.5); Mean Corpuscular Hemoglobin 23.9 pg (27.0-33.0); Mean Corpuscular Volume 76.5 fL (81.2-95.1); Platelet Count 241 10x3/uL (150-450); Red Blood Cell (RBC) Count 4.93 10x6/uL (4.32-5.72); White Blood Cell (WBC) Count 1.72 10x3/uL (3.5-10.5)
[2025-04-05 09:09] LABS: Reflex for Review?? YES
[2025-04-05 10:00] LABS: Anisocytosis SLIGHT = 6-15 cells (100X) (0-5/hpf); MDiff Complete? YES; Microcytosis SLIGHT = 6-15 cells (100X) (0-5/hpf); Ovalocytes SLIGHT = 2-5 cells (100X) (0-1/hpf); Platelet Adequacy Comment Appears Adequate
[2025-04-05 12:11] VITALS: BP 139/85; TEMP 97
== END 2025-04-05 13:09 | disposition home or self-care (01) | DRG 871 ==
LOC: CSHERS 12:36 → CSHERHOLD 19:24 → CSHICU 04-03 07:58 → CSHTELE 04-03 16:13
PROVIDERS: ADMIT Internal Medicine; ATTEND Family Medicine
DX: A41.9 Sepsis, unspecified organism (principal); G93.41 Metabolic encephalopathy; J18.9 Pneumonia, unspecified organism; R65.21 Severe sepsis with septic shock; N17.9 Acute kidney failure, unspecified; C91.10 Chronic lymphocytic leukemia of B-cell type not having achieved remission; E27.40 Unspecified adrenocortical insufficiency; E03.9 Hypothyroidism, unspecified; I48.0 Paroxysmal atrial fibrillation; I10 Essential (primary) hypertension; Z79.899 Other long term (current) drug therapy; N18.30 Chronic kidney disease, stage 3 unspecified; E11.40 Type 2 diabetes mellitus with diabetic neuropathy, unspecified; D50.9 Iron deficiency anemia, unspecified; D70.8 Other neutropenia
CPT/HCPCS: 36415; 36416; 71045; 71250; 74177; 80048; 80053; 81001; 83605; 84145; 85025; 85060; 85610; 85730; 87040; 87086; 87428; 93005; 94760; 96374; 96375; J0456; J0692; J0696; J1308; J1644; J1720; J3375; J7030; J7050